=== PATIENT | female | born 1955 | race Caucasian/White ===

== ENCOUNTER 2024-12-20 14:29 | Inpatient (IN) | payer MEDICARE, BC, MEDICAID, SELFPAY ==
[2024-12-20 15:00] VITALS: BP 127/80; PULSE 102; RESP 18; TEMP 36.6; O2SAT 98
--- NOTE | 2024-12-20 15:11 | EKG_ITS ---
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
--- NOTE | 2024-12-20 15:11 | XR_ITS ---
Examination: AP lateral chest 2 views TECHNIQUE: Upright AP lateral chest 2 views Date and time: December 20, 2024 1525 hours Comparison September 18, 2023 INDICATIONS: Chest pain shortness of breath confusion today. FINDINGS: Mild prominence left ventricle Significant hyperexpansion Accentuation basilar bronchovascular markings. No pneumonia or pulmonary edema IMPRESSION: COPD Basilar bronchitis pattern
--- NOTE | 2024-12-20 15:13 | PD.EDRME ---
Rapid Medical Screening Exam RME Arrival date/time: 12/20/24 14:29 69-year-old female with a history of atrial fibrillation presents to the emergency room with a chief complaint of altered mental status. Patient is brought in by family members who were sent over by the primary care provider. I have greeted and performed a focused initial assessment of this patient. A comprehensive ED assessment and evaluation of the patient, analysis of all test results, and completion of the medical decision making process will be conducted by additional ED providers. Chief Complaint: Altered Mental Status Time Seen by Provider: 12/20/24 14:48 Vital signs: Vital Signs Temperature 97.9 F 12/20/24 15:00 Pulse Rate 102 H 12/20/24 15:00 Respiratory Rate 18 12/20/24 15:00 Blood Pressure 127/80 12/20/24 15:00 Pulse Oximetry (%) 98 12/20/24 15:00 Oxygen Delivery Method Room Air 12/20/24 15:00 Vital signs reviewed by provider: Yes
[2024-12-20 16:04] LABS: Collection Type, Urine Clean Catch
[2024-12-20 16:06] LABS: Basophils # (Auto) 0.1 Thou/mm3 (0.0-0.2); Basophils % (Auto) 1 % (0-2.5); Eosinophils # (Auto) 0.2 Thou/mm3 (0.0-0.5); Eosinophils % (Auto) 3 % (0-10); Hematocrit 33.6 % (36.0-46.0); Hemoglobin 10.9 g/dL (12.0-16.0); Immature Granulocytes Auto 0.02 Thou/mm3 (0.00-0.00); Lymphocytes # (Auto) 1.2 Thou/mm3 (1.0-4.8); Lymphocytes % (Auto) 19 % (10-50); Mean Corpuscular HGB Conc 32.4 g/dl (31.0-37.0); Mean Corpuscular Hemoglobin 30.4 pg (25.0-35.0); Mean Corpuscular Volume 94 fL (80-100); Monocytes # (Auto) 0.4 Thou/mm3 (0.0-0.8); Monocytes % (Auto) 6 % (0-12); Neutrophils # (Auto) 4.6 Thou/mm3 (1.8-7.7); Neutrophils % (Auto) 70 % (37-80); Nucleated Red Blood Cell # 0.00 Thou/mm3 (0.00-0.00); Nucleated Red Blood Cell % 0 /100 WBC (0); Platelet Count 156 Thou/mm3 (140-440); RDW Standard Deviation 44.2 fL (36.4-46.3); Red Blood Count 3.58 Miln/mm3 (4.00-5.20); White Blood Count 6.5 Thou/mm3 (3.6-11.0)
[2024-12-20 16:15] LABS: Bilirubin,Urine Negative (Negative); Blood,Urine Negative (Negative); Clarity,Urine Clear (Clear/Hazy); Color,Urine Yellow (Lt Yel-Yel); Glucose, Urine Negative (Negative); Ketones,Urine Negative (Negative); Leukocyte Esterase,Urine Negative (Negative); Nitrite,Urine Negative (Negative); PH,Urine 6.0 (5.0-7.0); Protein,Urine Trace (Neg - Trace); RBC,Urine 12 /hpf (0-3); Specific Gravity,Urine 1.029 (1.001-1.035); Squamous Epithelial Cell,Urine 3 /hpf (0-5); Urobilinogen,Urine Negative mg/dL (0.0-1.0); WBC,Urine 1 /hpf (0-5)
--- NOTE | 2024-12-20 16:31 | XR_ITS ---
Examination: CT brain head without contrast. 2-D sagittal coronal reconstructions Date and time of exam:December 20, 2024, 1752 hours INDICATIONS: Altered mental status after falling 2 days ago CTDI: vol (mGy):39.6. DLP: (mGycm):704 Technique: Multiple CT axial sections of the brain have been obtained, 5 mm slice thickness. Contrast has not been administered. 2-D sagittal, coronal reconstructions have been obtained Low dose protocols were performed. One or more of the following dose reduction techniques were used; automated exposure control, adjustment of the mA and/or KV according to patient size, use of iterative reconstruction technique. Findings: No significant ventricular enlargement. Intra-axial or extra-axial hemorrhage density is not seen. No mass effect or midline shift Basal cisterns are not remarkable. Fourth ventricle is midline. Cranial vault intact. Soft tissue right scalp swelling Impression: Negative for acute hemorrhage, mass effect or midline shift
--- NOTE | 2024-12-20 16:32 | PD.EDAMS ---
Altered Mental Status RME/HPI General Chief Complaint: Altered Mental Status Stated Complaint: CONFUSED, SENT BY DR HODGES FOR WORKUP Time Seen by Provider: 12/20/24 14:48 Arrival date/time: 12/20/24 14:29 Limitations: no limitations RME / HPI RME / HPI narrative: 12/20/24 14:29 69-year-old female with a history of atrial fibrillation presents to the emergency room with a chief complaint of altered mental status. Patient is brought in by family members who were sent over by the primary care provider. I have greeted and performed a focused initial assessment of this patient. A comprehensive ED assessment and evaluation of the patient, analysis of all test results, and completion of the medical decision making process will be conducted by additional ED providers. DR. GENTILE MAIN ED EVALUATION 69 year old female with history of dementia, COPD, requiring 4L of home oxygen, who presents to the ED for evaluation of generalized weakness, referred by her PCP Dr. Hodges. Per son, the patient?s cognitive and physical condition have progressively deteriorated over the last two months. Specifically in the last week with a significant decline in her mobility. Approximately two months ago, the patient was still able to walk with the assistance of a walker. However, she is now mostly sedentary. In the past few weeks, she has had frequent falls, including a recent ground-level fall this morning, resulting in a small laceration to the back of her head. No loss of consciousness. While in the ED, the patient complains of feeling globally weak, headache, and pain in her right upper back. Son denies any fever, chills, chest pain, shortness of breath, cough, vomiting, diarrhea, or urinary complaints. Son expressed concerns of the rapid progression of her symptoms and requesting SNF placement. Social History: 40 year smoking history and currently occasionally uses a vape. Related Data Home Medications ?Medication ?Instructions ?Recorded ?Confirmed estradiol 1 mg tablet (Estrace) 2 mg PO QDAY #0 tabs 03/05/16 01/18/21 fentanyl 100 mcg/hr transdermal 100 mcg TD 2 X WEEKLY PRN PAIN ##0 03/05/16 01/18/21 patch hydrocodone 10 mg-acetaminophen 1 tab PO TID #0 tabs 03/05/16 01/18/21 300 mg tablet metoprolol succinate 25 mg 50 mg PO BID ##0 03/05/16 01/18/21 tablet,extended release 24 hr (Toprol XL) mirtazapine 30 mg tablet (Remeron) 15 mg PO QDAY ##0 03/05/16 01/18/21 omeprazole 40 mg capsule,delayed 40 mg PO BID ##0 03/05/16 01/18/21 release albuterol sulfate 90 mcg/actuation 2 puff inhalation QID 05/27/18 01/18/21 aerosol inhaler (ProAir HFA) prochlorperazine maleate 10 mg 10 mg PO TID 05/27/18 01/18/21 tablet (Compazine) sertraline 25 mg tablet (Zoloft) 50 mg PO QDAY 05/27/18 01/18/21 fluticasone fur. 100 mcg-umeclid 1 inh inhalation QDAY 04/23/19 01/18/21 62.5 mcg-vilant 25 mcg inhalat.powder (Trelegy Ellipta) furosemide 40 mg tablet 40 mg PO QDAY 04/23/19 01/18/21 pentosan polysulfate sodium 100 mg 100 mg PO TID 04/23/19 01/18/21 capsule (Elmiron) Previous Rx's ?Medication ?Instructions ?Recorded prednisone 50 mg tablet 50 mg PO QDAY #7 tabs 09/18/23 Allergies Allergy/AdvReac Type Severity Reaction Status Date / Time amoxicillin Allergy Nausea Verified 12/20/24 14:34 sulfamethoxazole (From Allergy Nausea Verified 12/20/24 14:34 Bactrim) trimethoprim (From Bactrim) Allergy Nausea Verified 12/20/24 14:34 Review of Systems Review of Systems Systems Reviewed: All systems reviewed, normal except as documented Past Medical History Past Medical History NEUROLOGIC: Positive Cerebrovascular Accident and Meningitis CARDIAC: Positive Cardiac Disorders and Hypertension RESPIRATORY: Positive Chronic Obstructive Pulmonary Disease (COPD), Emphysema and Pneumonia GASTROINTESTINAL: Positive Gastrointestinal Disorders, Hepatitis, Hemorrhoids and Gastroesophageal Reflux Disease GENITOURINARY: Positive Genitourinary Disorders REPRODUCTIVE: Positive Previous Pregnancies MUSCULOSKELETAL: Positive Musculoskeletal Disorders, Arthritis, Osteoporosis and Fibromyalgia ENDOCRINE: Positive Endocrine Disorders HEMATOLOGIC: Positive Blood Disorders and Anemia PSYCHO/SOCIAL: Positive Depression and Anxiety OTHER HISTORY: Positive Hospitalization, Chicken Pox and Measles Family History FAMILY HISTORY: Positive Family Respiratory Disorders and Family Surgery; Negative Family Psychiatric Problems, Family Cardiac Disorders, Family Gastrointestinal Problems, Family Cancer or Family Anesthesia Reaction Surgical History SURGICAL: Positive Abdominal Surgery and Hysterectomy; Negative Cardiac Surgery or Endocrine Surgery Social History SMOKING STATUS: Former smoker SECOND HAND EXPOSURE: No ED Exam General Limitations: Present no limitations General appearance: Present alert, in no apparent distress, cachectic and other (Pleasantly demented and unable to contribute to hx ) Head Head exam: Present other (Posterior scalp contusion with small overlying abrasion, no laceration ) Eye Eye exam: Present normal appearance, PERRL and EOMI ENT ENT exam: Present normal exam, normal oropharynx and mucous membranes moist Neck Neck exam: Present normal inspection, full ROM and trachea midline Chest Chest inspection: Present normal inspection and symmetric chest wall rise Respiratory Respiratory exam: Present normal lung sounds bilaterally Cardiovascular Cardiovascular exam: Present regular rate, normal rhythm and normal heart sounds Abdominal Exam Abdominal exam: Present soft and normal bowel sounds Extremities Exam Extremities exam: Present normal inspection and full ROM Back Exam Back exam: Present normal inspection and full ROM Neurological Exam Neurological exam: Present alert, CN II-XII intact and other (Pleasantly demented ) Psychiatric Psychiatric exam: Present normal affect and normal mood Skin Skin exam: Present warm, dry, intact and normal color Course Quality Measures none Orders Category Date Time Status Consult Deputy Administrator X1 Care 12/20/24 15:14 Active EKG (ED ONLY) *Do not use* NOW Care 12/20/24 15:11 Completed PT [Referral Physical Therapy] Stat Cons 12/20/24 15:[address] head/brain wo con Stat Exams 12/20/24 16:31 Taken EKG (ED Only) Stat Exams 12/20/24 15:11 Draft XR chest 2V Stat Exams 12/20/24 15:11 Completed B-Type Natriuretic Peptide Stat Lab 12/20/24 15:52 Completed CBC Stat Lab 12/20/24 15:52 Completed Comprehensive Metabolic Panel Stat Lab 12/20/24 16:49 Completed Free T4 (Free Thyroxine) Stat Lab 12/20/24 16:49 Completed Magnesium Stat Lab 12/20/24 16:49 Completed Thyroid Stimulating Hormone Stat Lab 12/20/24 16:49 Completed Troponin I Stat Lab 12/20/24 16:49 Completed Urinalysis Stat Lab 12/20/24 15:49 Completed Sodium Chloride 0.9% 1000 ml [Ns] 1,000 ml Med 12/20/24 17:49 Active IV 999 mls/hr Vital Signs Vital signs: Vital Signs Temperature 97.9 F 12/20/24 15:00 Pulse Rate 102 H 12/20/24 15:00 Respiratory Rate 18 12/20/24 15:00 Blood Pressure 127/80 12/20/24 15:00 Pulse Oximetry (%) 98 12/20/24 15:00 Oxygen Delivery Method Room Air 12/20/24 15:00 Pulse ox is 98% on room air which is adequate. Altered Mental Status MDM Narrative MDM Narrative:: Skye Garcia am scribing for and in the presence of Dr. Gentile. Patient data External records reviewed:: [facility] previous records (I reviewed ED visit on 09/18/2023 ) Clinical information provided by:: patient and family (Son provides majority of history ) Social determinants that could affect healthcare access:: none Patient has the following chronic illnesses:: Dementia, COPD, requiring 4L of home oxygen How is presenting disease/condition affected by chronic disease/condition?: exacerbated by Evaluation data The following diagnostics were reviewed and interpreted by me:: lab results, radiology exam(s) and EKG tracing(s) (15:16 PM. NSR, 77, LAD, no ectopy, Q-wave in lead V1 and V2 as well as lead III and aVF, no STEMI. ) Lab and/or radiology exams considered but not ordered:: None Interpretation Summary: Ordering Physician: Sharan Carter Date of Service: 12/20/24 Procedure(s): XR chest 2V Accession Number(s): [id number] cc: Sharan Carter; Goran Robison MD~ Examination: AP lateral chest 2 views TECHNIQUE: Upright AP lateral chest 2 views Date and time: December 20, 2024 1525 hours Comparison September 18, 2023 INDICATIONS: Chest pain shortness of breath confusion today. FINDINGS: Mild prominence left ventricle Significant hyperexpansion Accentuation basilar bronchovascular markings. No pneumonia or pulmonary edema IMPRESSION: COPD Basilar bronchitis pattern Dictated By: Goran Robison MD Signed By: <Electronically signed by Goran Robison MD in OV> 12/20/24 1543 Medications / Prescriptions Medications or Prescriptions considered but not ordered:: None Medication administrations:: Medication Administration History Sodium Chloride (Ns) 1,000 mls @ 999 mls/hr IV .Q1H1M ONE Stop: 12/20/24 18:49 See above Consultations Consultation(s) initiated? (list below): No Diagnosis Most likely diagnosis given after review of the tests above:: Generalized weakness Dehydration Adult failure to thrive Admission Indicated Admission indicated?: indicated Admission Request Was there a request for admission?: Yes Admission Attestation Admission request attestation: Discussed case with [] from Hospitalist service regarding admission. Discussed patients ED course, exam findings, labs, and radiology results. The Hospitalist [agrees,declines] to accept the patient for admission. Disposition Plan Disposition Plan: Admit Discharge Plan Plan Patient Disposition: Admit Acute Care w/in Hospital Prescriptions/Referrals Prescriptions/Med Rec: No Action fentanyl 100 mCg/PATCH patch 72 hour 100 mcg TD 2 X WEEKLY PRN (Reason: PAIN) Qty: 0 estradiol [Estrace] 1 MG tablet 2 mg PO QDAY Qty: 0 metoprolol succinate [Toprol XL] 25 MG tablet extended release 24 hr 50 mg PO BID Qty: 0 hydrocodone-acetaminophen 10-300 mg Tablet 1 tab PO TID Qty: 0 omeprazole 40 MG capsule,delayed release(DR/EC) 40 mg PO BID Qty: 0 mirtazapine [Remeron] 30 mg Tablet 15 mg PO QDAY Qty: 0 prochlorperazine maleate [Compazine] 10 mg Tablet 10 mg PO TID albuterol sulfate [ProAir HFA] 90 mcg/actuation Hfa Aerosol Inhaler 2 puff INHALATION QID sertraline [Zoloft] 25 mg Tablet 50 mg PO QDAY furosemide 40 mg Tablet 40 mg PO QDAY Elmiron 100 mg Capsule 100 mg PO TID Trelegy Ellipta 100-62.5-25 mcg Blister With Device 1 inh INHALATION QDAY prednisone 50 mg tablet 50 mg PO QDAY Qty: 7 0RF Referrals: Shahram Hodges MD [Primary Care Provider] - In 1 week Problem List Clinical Impression: Generalized weakness, Dehydration, Adult failure to thrive Patient/Caregiver Discharge Instructions Print Language: Yi Stand Alone Forms: Elizabeth Award Info., Patient Portal Info Letter
[2024-12-20 16:46] LABS: B-Type Natriuretic Peptide 107 pg/mL (0-100)
--- NOTE | 2024-12-20 16:50 | PC.CC ---
Per request of PA, ASW spoke with family regarding SNF placement, as the pt and family want SNF for the pt. ASW informed ER provider that pt will need a PT eval and PT is present with pt now. ASW or SS will f/u with SNF referral upon results from PT.
--- NOTE | 2024-12-20 17:00 | PC.PT ---
PT eval completed.
[2024-12-20 17:26] LABS: Alanine Aminotransferase 7 U/L (10-49); Albumin, Serum 4.1 gm/dL (3.4-4.8); Albumin/Globulin Ratio 1.4 (1.2-2.2); Alkaline Phosphatase 152 U/L (46-116); Anion Gap 10 (7-16); Aspartate Amino Transferase 25 U/L (0-34); BUN/Creatinine Ratio 33 Ratio (12-20); Bilirubin,Total 0.2 mg/dL (0.3-1.2); Blood Urea Nitrogen 26 mg/dL (9-23); Calcium 9.0 mg/dL (8.3-10.6); Calcium (Corrected) 9.0 mg/dL (8.5-10.1); Carbon Dioxide 31.7 mMol/L (20.0-31.0); Chloride 101 mMol/L (98-107); Creatinine (Component) 0.8 mg/dL (0.6-1.3); Globulin 2.9 gm/dL (2.3-3.5); Glucose 90 mg/dL (74-106); Magnesium 1.7 mg/dL (1.6-2.6); Osmolality,Calculated 289 (275-295); Potassium 3.9 mMol/L (3.4-5.1); Sodium 143 mMol/L (136-145); Total Protein 7.0 gm/dL (5.7-8.2); Troponin I < 0.020 ng/mL (0.0-0.045); eGFR > 60 See Note
[2024-12-20 18:20] LABS: Free T4 (Free Thyroxine) 0.80 ng/dL (0.89-1.76); Thyroid Stimulating Hormone 2.19 uIU/mL (0.55-4.78)
--- NOTE | 2024-12-20 19:14 | ESHP_ITS ---
Documentation for date of: 12/20/24 HPI History of Present Illness History of present illness: HPI is limited as this patient is a poor historian Faina is a 69 y/o female with PMHx COPD (On 4-5 L oxygen at home), anorexia, ? Urinary incontinence, failure to thrive, and recurrent falls who comes to [facility] on 12/20/2024 and was brought in by her son and daughter in law for evaluation of worsening fatigue. Pt's family reports that pt has been on hospice for the past two years and needed to get reevaluated by her PCP to continue with hospice. They say she is on hospice for long standing COPD in which she uses Oxygen 4-5 L. They say she has been worsening with her ADLs for the past several months and endorse significant weak loss in the interim. They say she gets very anxious and has a number of medicines for her anxiety and chronic pain. Pt does have recurrent falls at home as well and had a couple falls prior to admission. Has never seen a lung doctor, unsure who her tool coordinator is at this time. She currently lives at home with her son and daughter in law. ED Course: Pt arrived to the ED with a temperature of 98.0 F, HR of 102, RR 18, and a blood pressure of 127/80, saturating 98% on Room air. Pt was worked up and was found to have a Hgb of 10.9, WBC 6.5, Potassium 3.9, Na 143, Cr 0.8, Mg 1.7, T4 0.8, TSH 2.19. EKG showed normal rate and sinus rhythm, qtc 390. CXR shows bibasilar bronchitis. Head CT was done and showed no hemorrhage, mass effect or midline shift. Medicine was consulted and pt was admitted to the floors. PMHx: As above Surgeries: Surgical hx is unknown at this time Meds: Estradiol, Xanax (Scheduled 1 mg BID), Ativan (0.5 mg q8h PRN), Liquid Morphine 30 mg q12h PRN, Elmiron (100 mg qday), gabapentin 200 mg qday, Seroquel 100 mg BID, Metorpolol XL 50 mg qday Allergies: Amoxicillin, Bactrim Family Hx: Limited Family hx at this time Social Hx:Has smoked for over 30 years, uses 4-5 L of oxygen at baseline, has been on hospice for about ~ 2 years, has had multiple ground level falls recently, wheelchair bound for the past couple months. Born in [place], has lived in [place] and [place] in the past. Unsure if pt has worked in the past. Review of Systems Review of Systems Narrative Review of Systems: ROS is limited at this time as pt is poor historian at this time Exam Vital Signs Temp Pulse Resp BP Pulse Ox O2 Del Method 97.9 F 102 H 18 127/80 98 Room Air 12/20/24 15:00 12/20/24 15:00 12/20/24 15:00 12/20/24 15:00 12/20/24 15:00 12/20/24 15:00 Narrative Exam General: AAOx1, wheel chair bound, uses oxygen, frail, little musculature, weak HEENT: Dry mucous membranes, conjunctiva clear, EOMI, PERRLA, poor dentition, prominent clavicles bilat, some dried scabs present throughout her head Cardiovascular: S1, S2, radial pulses +2 bilat, RRR Pulmonary: Slight wheezing, on 4L NC GI: No tenderness to light or deep palpitation, no guarding, rigidity, rebound tenderness or distension Extremities: No presence of trace or pitting edema in lower extremities bilaterally, dorsalis pedis pulses +1 bilaterally Neuro: AAOx1, Limited neuro exam Psych: Anxious, slightly cooperative Results: Labs 12/21/24 05:28 12/21/24 05:28 Labs: Short CBC 12/20/24 Range/Units 15:52 WBC 6.5 (3.6-11.0) Thou/mm3 Hgb 10.9 L (12.0-16.0) g/dL Hct 33.6 L (36.0-46.0) % Plt Count 156 (140-440) Thou/mm3 BMP 12/20/24 16:49 Sodium 143 Potassium 3.9 Chloride 101 Carbon Dioxide 31.7 H BUN 26 H Creatinine 0.8 Glucose 90 Calcium 9.0 Cardiac Enzymes 12/20/24 Range/Units 16:49 Troponin I < 0.020 (0.0-0.045) ng/mL Liver Function 12/20/24 Range/Units 16:49 Total Bilirubin 0.2 L (0.3-1.2) mg/dL AST 25 (0-34) U/L ALT 7 L (10-49) U/L Alkaline Phosphatase 152 H (46-116) U/L Albumin 4.1 (3.4-4.8) gm/dL Urine 12/20/24 Range/Units 15:49 Urine Color Yellow (Lt Yel-Yel) Urine Clarity Clear (Clear/Hazy) Urine pH 6.0 (5.0-7.0) Ur Specific [place] 1.029 (1.001-1.035) Urine Protein Trace (Neg - Trace) Urine Glucose (UA) Negative (Negative) Quality Measures Quality Measures none Advance care planning discussed with:: patient and child Medications Home Medications and Allergies Home Medications ?Medication ?Instructions ?Recorded ?Confirmed ?Type estradiol 1 mg tablet (Estrace) 2 mg PO QDAY #0 tabs 1 12/20/24 History fentanyl 100 mcg/hr transdermal 100 mcg TD 2 X WEEKLY PRN PAIN ##0 03/05/16 12/20/24 History patch metoprolol succinate 25 mg 50 mg PO BID ##0 03/05/16 0 12/20/24 History tablet,extended release 24 hr (Toprol XL) omeprazole 40 mg capsule,delayed 40 mg PO BID ##0 /0 09/1512/20/24 History release albuterol sulfate 90 mcg/actuation 2 puff inhalation Q ID 05/27/18 12/20/24 History aerosol inhaler (ProAir HFA) prochlorperazine maleate 10 mg 10 mg PO TID 05/27/18 0 12/20/24 History tablet (Compazine) sertraline 25 mg tablet (Zoloft) 50 mg PO QDAY 8 12/20/24 History fluticasone fur. 100 mcg-umeclid 1 inh inhalation QDAY 04/23/19 12/20/24 History 62.5 mcg-vilant 25 mcg inhalat.powder (Trelegy Ellipta) furosemide 40 mg tablet 40 mg PO QDAY 04/23/1912/20 History pentosan polysulfate sodium 100 mg 100 mg PO TID 04/2312/20/24 History capsule (Elmiron) alprazolam 1 mg tablet 1 mg PO BID anxiety 12/20/24 12/20/24 History gabapentin 100 mg capsule 100 mg PO QDAY 12/20/2412/01 History lorazepam 0.5 mg tablet 0.5 mg PO Q8H PRN anxiety an d 12/20/24 12/20/24 History agitation morphine 30 mg tablet,extended 30 mg PO Q12H 12/20/24 12/20/24 History release quetiapine 50 mg tablet 50 mg PO BID 12/20/24 History Allergies Allergy/AdvReac Type Severity Reaction Status Date / Time amoxicillin Allergy Nausea Verified 12/20/24 14:34 sulfamethoxazole (From Allergy Nausea Verified 12/20/24 14:34 Bactrim) trimethoprim (From Bactrim) Allergy Nausea Verified 12/20/24 14:34 Visit Medications Acetaminophen (Acetaminophen 325 Mg Tablet) 650 mg PO Q6H PRN PRN Reason: Fever >100 or pain 1-3 Stop: 01/19/25 18:59 Hydrocodone Bitart/Acetaminophen (Hydrocodone/Apap 5/325 Tablet) 1 tab PO Q4HR PRN PRN Reason: PAIN SCALE 4-6 (Moderate Stop: 12/25/24 18:59 Alprazolam (Alprazolam 0.25 Mg Tablet) 1 mg PO BID [facility] Stop: 12/25/24 19:09 Estradiol (Estradiol 1 Mg Tablet) 2 mg PO QDAY [facility] Stop: 01/20/25 08:59 Gabapentin (Gabapentin 100 Mg Capsule) 200 mg PO QDAY [facility] Stop: 01/20/25 08:59 Levalbuterol HCl (Levalbuterol Rt 0.63 Mg/3 Ml Nebu) 0.63 mg INH Q6HRRT PRN PRN Reason: wheezing or SOB Stop: 01/19/25 18:59 Lorazepam (Lorazepam 0.5 Mg Tablet) 0.5 mg PO Q8H PRN PRN Reason: anxiety Stop: 12/25/24 19:04 Morphine Sulfate (Morphine Sulf Liqd 10 Mg/5 Ml Udc) 10 mg PO Q4HR PRN PRN Reason: breakthrough pain Stop: 12/25/24 19:04 Non-Formulary Medication (Elmiron) 100 mg PO QDAY [facility] Stop: 01/20/25 08:59 Pantoprazole Sodium (Pantoprazole Inj 40 Mg Vial) 40 mg IVP QDAY [facility] Stop: 01/20/25 08:59 Discontinued Medications Sodium Chloride (Ns) 1,000 mls @ 999 mls/hr IV .Q1H1M ONE Stop: 12/20/24 18:49 Assessment & Plan Plan Assessment Faina is a 69 y/o female with PMHx COPD (On 4-5 L oxygen at home), anorexia, ? Urinary incontinence, failure to thrive, and recurrent falls who is admitted current for recurrent falls, generalized weakness and failure to thrive. #Generalized Weakness #Recurrent Falls #Failure to thrive #Polypharmacy #Chronic Pain Pt has been on hospice for about two years, is taking an impressive amount of narcotics, analgesics and anxiolytics Pt will need reevaluation for hospice evaluation Pt was on hospice for worsening COPD Will hold on resuming all home pain medicine regimen at this time due to concern for polypharmacy Head CT negative Plan: - RD consult - PT consult - Nurse swallow screen - Orthostatic Vitals - Multimodal pain management including Liquid morphine, Gabapentin, [place] and Tylenol - Cardiac Stratification #Hx of COPD #Chronic Smoker GOLD Stage: E Uses 4-5 L at baseline Uses Nebulizer VESTA sparingly Barley uses Advair at home Plan: - Xoponex Breathing Tx Q6HRRT - Maintain Oxygen saturations 88-92% - Consider Pulmonology consult - Nicotine Patch - Avoid BB for concern for bronchospasm #Chronic A-fib [id number] HAS-BLED: 2 Rate: Controlled Rhythm: Appears to be regular at the time AC: None upon med d/c Last Echo in 2018 shows EF 60% Unsure if it is paroxysmal, however EKG in 2018 shows Afib with RVR Pt is currently sinus Unsure why patient is on BB with COPD and Afib If she does not have HFrEF, pt would benefit more with Cardizem for rate and rhythm control and have reduced risk for bronchospasm Plan: - Telemetry - Holding BB - Mag >2; K+>4 - Consider Cardio consult #Chronic Normocytic anemia DDx: GI Bleed, Cancer, chronic anemia, medication induced NSAID use: Unsure Blood thinner use: None MCV ~90s, Hgb 10.9 Plan: ? Trend CBC ? Iron studies panel ? Peripheral blood smear ? Transfusion protocol hemoglobin below 7 ? Reticulocyte Count ? Protonix 40 mg daily #Hx of Anxiety Takes Seroquel, xanax and ativan as needed Concern for Polypharmacy Plan: - Resumed home seroquel 100 mg BID - Resumed home Xanax 1 mg BID - Resumed home Ativan 0.5 mg q8h PRN #Low T4 #Hx of L thyroid nodule s/p L thyroid lobectomy Unsure if patient takes thyroid medicine TSH wnl (2.19) Plan: - Will consider starting thyroid medicine, but will hold upon med rec #? Chronic Bedsore Unable to examine at this time Reported by family Plan: - Wound care as needed - Referral to wound care #Health Maintenance Disposition: Med/Tele DVT prophylaxis: Lovenox GI prophylaxis: Protonix Diet: Pending Swallow Eval CODE STATUS: DNR Patient seen and care discussed with my attending physician, Dr. Augie Garcia, PGY-2 Attending Provider Attestation/Addendum I attest that I was physically present for the evaluation, physical examination, lab and imaging review of the patient with the residents. I discussed the case with the residents and agree with the findings and plans of care as documented above. After examination of the patient and review of the clinical data I feel that this patient needs admission to the hospital for further treatment/evaluation. Patient is a 69 years old female with past medical history of COPD on 4 to 5 L home oxygen, urinary incontinence, failure to thrive, A-fib, recurrent falls who presented to the ED with worsening fatigue and recurrent falls. Patient is also on hospice care with extensive pain/anxiety medication. She has been having decreased appetite, losing weight and also has a bedsore. In the ED, vitals were stable except for mild heart rate elevation, saturating well on nasal cannula. She has a hemoglobin of 10.9, magnesium 1.7. Chest x-ray shows bibasilar bronchitis. Head CT was done, which was negative for acute finding. At bedside, patient is only oriented to herself, appears frail and anxious. Has dry mucous membrane, also has a small wound on her occipital region. Noted to have multiple small bruising around multiple places of body. We will admit the patient for management of recurrent falls, failure to thrive and generalized weakness. We will obtain orthostatic vitals, physical therapy evaluation, registered dietitian evaluation. We will continue with supplemental oxygen, and continue with multimodal pain management. We will also obtain wound care referral for bedsore. Rosanna Ghosh MD
[2024-12-20 19:20] VITALS: BP 136/80; PULSE 72; RESP 16; TEMP 36.4; O2SAT 100
[2024-12-20 19:45] VITALS: PULSE 67; RESP 18; O2SAT 98
[2024-12-20] MEDS: SODIUM CHLORIDE 0.9% 1000 ML 1,000 ML 999 ML IV (19:46)
[2024-12-20 20:12] VITALS: PULSE 69; RESP 18; O2SAT 97
[2024-12-20 21:30] VITALS: BP 154/55; PULSE 68; RESP 15; TEMP 36.1; O2SAT 99
[2024-12-20] MEDS: Magnesium Sulfate 2 GM Ivpb 2 GM/50 ML BAG IV (22:16)
[2024-12-21] VITALS (13 sets, daily range): BP systolic 137–165; BP diastolic 73–102; PULSE 57–106; RESP 10–17; TEMP 36.1–37.2; O2SAT 92–100; BMI 11.2; BMI 13.0
[2024-12-21 06:11] LABS: Basophils # (Auto) 0.0 Thou/mm3 (0.0-0.2); Basophils % (Auto) 1 % (0-2.5); Eosinophils # (Auto) 0.2 Thou/mm3 (0.0-0.5); Eosinophils % (Auto) 5 % (0-10); Hematocrit 31.5 % (36.0-46.0); Hemoglobin 10.0 g/dL (12.0-16.0); Immature Granulocytes Auto 0.00 Thou/mm3 (0.00-0.00); Immature Reticulocyte Fraction 12.6 % (3.0-15.9); Lymphocytes # (Auto) 1.8 Thou/mm3 (1.0-4.8); Lymphocytes % (Auto) 35 % (10-50); Mean Corpuscular HGB Conc 31.7 g/dl (31.0-37.0); Mean Corpuscular Hemoglobin 30.6 pg (25.0-35.0); Mean Corpuscular Volume 96 fL (80-100); Monocytes # (Auto) 0.4 Thou/mm3 (0.0-0.8); Monocytes % (Auto) 8 % (0-12); Neutrophils # (Auto) 2.7 Thou/mm3 (1.8-7.7); Neutrophils % (Auto) 51 % (37-80); Nucleated Red Blood Cell # 0.00 Thou/mm3 (0.00-0.00); Nucleated Red Blood Cell % 0 /100 WBC (0); Platelet Count 142 Thou/mm3 (140-440); RDW Standard Deviation 45.8 fL (36.4-46.3); Red Blood Count 3.27 Miln/mm3 (4.00-5.20); Reticulocyte % (Auto) 1.1 % (0.5-1.5); Reticulocyte Absolute Auto 35.0 Biln/L (25.0-75.0); Reticulocyte Hgb Content 34.0 pg (28.0-35.0); White Blood Count 5.2 Thou/mm3 (3.6-11.0)
[2024-12-21 06:21] LABS: INR 1.1 (0.9-1.3); Partial Thromboplastin Time 36.6 Seconds (22.0-36.0); Prothrombin Time 11.5 Seconds (9.0-12.2)
[2024-12-21 06:37] LABS: Ferritin 62 ng/mL (7.3-270.7); Iron 44 mcg/dL (50-170); Percent Iron Saturation 19 % (20-55); Total Iron Binding Capacity 230 mcg/dL (250-425); Unsaturated Iron Binding 186 (225-295)
[2024-12-21] MEDS: LEVALBUTEROL RT 0.63 MG/3 ML NEBU INH ×2 (06:46→12:38)
[2024-12-21 06:48] LABS: Glucose Estimated Average 120 mg/dL (80-131); Hemoglobin A1C 5.8 % Hgb (4.8-6.0)
[2024-12-21 06:58] LABS: Alanine Aminotransferase < 7 U/L (10-49); Albumin, Serum 3.7 gm/dL (3.4-4.8); Albumin/Globulin Ratio 1.4 (1.2-2.2); Alkaline Phosphatase 136 U/L (46-116); Anion Gap 10 (7-16); Aspartate Amino Transferase 17 U/L (0-34); BUN/Creatinine Ratio 27 Ratio (12-20); Bilirubin,Total 0.2 mg/dL (0.3-1.2); Blood Urea Nitrogen 19 mg/dL (9-23); Calcium 8.4 mg/dL (8.3-10.6); Calcium (Corrected) 8.6 mg/dL (8.5-10.1); Carbon Dioxide 31.6 mMol/L (20.0-31.0); Cardiac Risk Estimate 2.9 RATIO (3.7-5.6); Chloride 102 mMol/L (98-107); Cholesterol 179 mg/dL (132-200); Creatinine (Component) 0.7 mg/dL (0.6-1.3); Estimated Creatinine Clearance 31.0 mL/min (>60); Globulin 2.7 gm/dL (2.3-3.5); Glucose 78 mg/dL (74-106); HDL Cholesterol 61 mg/dL (40-60); LDL Cholesterol,Calculated 96 mg/dL (0-130); Magnesium 2.4 mg/dL (1.6-2.6); Osmolality,Calculated 288 (275-295); Phosphorous 2.7 mg/dL (2.4-5.1); Potassium 3.6 mMol/L (3.4-5.1); Sodium 144 mMol/L (136-145); Thyroid Stimulating Hormone 3.47 uIU/mL (0.55-4.78); Total Protein 6.4 gm/dL (5.7-8.2); Triglycerides 112 mg/dL (30-150); eGFR > 60 See Note
[2024-12-21] MEDS: NICOTINE PATCH 14 MG/24 HR PATCH.TD24 TOP (08:13)
[2024-12-21] MEDS: GABAPENTIN 100 MG CAPSULE 200 MG PO (08:14)
[2024-12-21] MEDS: ENOXAPARIN SOD INJ 40 MG/0.4 ML SYRINGE SC (08:14)
--- NOTE | 2024-12-21 08:30 | PCS.ST ---
Swallow Evaluation completed. See report for details. No s/s of aspiration. Functional swallow.
[2024-12-21 09:14] LABS: Path Review Blood Smear Sent to Pathologist
--- NOTE | 2024-12-21 10:34 | PC.DIETICIAN ---
Nutrition recommendations: 1. Regular diet (chopped meats). 2. Ensure Plus 240ml BID with breakfast and lunch. 3. Thiamine 100mg/day for 10 days. 4. Multivitamins/Minerals. Patient meets ASPEN criteria for Severe chronic disease or condition related malnutrition due to: 1. Severe muscle wasting. 2. Severe subcutaneous fat loss. 3. Significant unintentional weight loss. 4. Suspected inadequate energy intake.
[2024-12-21 11:00] LABS: Free T4 (Free Thyroxine) 0.74 ng/dL (0.89-1.76)
--- NOTE | 2024-12-21 12:20 | PC.SS ---
Follow up note: SS spoke to patient's son, Nitish @ [phone]. Nitish confirmed he is the alt medical decision maker. He states patient resides at home with him. She is total care. Patient was previously open to [facility]. Son wants patient to d/c to SNF short term. They are willing to stop hospice services temporarily while at SNF. SS will refer financial counselor to speak with family about [employer]. Son requesting a follow up with counselor about [facility] process. Son states they have all DmE at home provided by [facility]. DME: BSC, hospital bed, concentrator, 02, cane. Family preference is [facility]. Eventually, patient's son would prefer intermediate manager placement. Patient is currently altered. Patient will need gurney transport. d/c plan: SNF short term transport: [facility] aly medical decision maker: Son, Nitish,
--- NOTE | 2024-12-21 14:33 | ESPR_ITS ---
<Statement entered by Alex Ryan MD - 12/21/24 18:43> 69-year-old female with advanced COPD (GOLD Stage E) on home oxygen, anorexia, chronic pain, and a history of failure to thrive and recurrent falls, currently admitted for worsening generalized weakness and falls. She has a history of prolonged hospice enrollment for COPD and is on multiple sedating medications, raising concerns for polypharmacy contributing to her current condition. Her chronic pain regimen includes high-dose opioids and anxiolytics. Given her frailty and current weakness, home pain medications are temporarily held, and a multimodal approach with lower-dose morphine, gabapentin, and Tylenol is being used. Her presentation is highly concerning for malnutrition with a BMI of 11 with registered dietitian on board. She has chronic atrial fibrillation, currently in sinus rhythm, with prior echocardiogram showing preserved EF. Beta-blockers are held due to concerns over bronchospasm in COPD. She is not anticoagulated, and family in agreement against anticoagulation. She also has chronic normocytic anemia, likely multifactorial, with mild iron deficiency and no current anticoagulation or overt GI bleeding. A workup including blood smear and reticulocyte count is underway. Additional concerns include anxiety managed with multiple sedatives, wound care evaluation for bedsore, and a history of thyroid nodule post-lobectomy with currently low T4 but normal TSH. Documentation for date of: 12/21/24 Subjective Subjective Interval history: Patient seen at bedside. No acute overnight events. Patient is on 2 L of oxygen now, baseline is 4 to 5 L at home. Patient ate meals today. No chest pain, no shortness of breath, no abdominal pain, no nausea, and no vomiting. Exam Vital Signs Temp Pulse Resp BP Pulse Ox O2 Del Method O2 Flow Rate 97.0 F 57 L 16 143/73 H 100 Nasal Cannula 2 12/21/24 11:32 12/21/24 12:39 12/21/24 12:39 12/21/24 11:46 12/21/24 12:39 12/21/24 11:32 12/21/24 12:39 Narrative Exam General: AAOx1, wheel chair bound, uses oxygen, frail, little musculature, weak HEENT: Dry mucous membranes, conjunctiva clear, EOMI, PERRLA, poor dentition, prominent clavicles bilat, some dried scabs present throughout her head Cardiovascular: S1, S2, radial pulses +2 bilat, RRR Pulmonary: Slight wheezing, on 2L NC GI: No tenderness to light or deep palpitation, no guarding, rigidity, rebound tenderness or distension Extremities: No presence of trace or pitting edema in lower extremities bilaterally, dorsalis pedis pulses +1 bilaterally Neuro: AAOx1, Limited neuro exam Psych: Anxious, slightly cooperative Objective Labs 12/21/24 05:28 12/21/24 05:28 Labs: Laboratory Results - last 24 hr 12/20/24 12/20/24 12/20/24 15:49 15:52 16:49 WBC 6.5 RBC 3.58 L Hgb 10.9 L Hct 33.6 L MCV 94 MCH 30.4 MCHC 32.4 RDW Std Deviation 44.2 Plt Count 156 Neut % (Auto) 70 Lymph % (Auto) 19 [place] % (Auto) 6 Eos % (Auto) 3 Baso % (Auto) 1 Neut # (Auto) 4.6 Lymph # (Auto) 1.2 [place] # (Auto) 0.4 Eos # (Auto) 0.2 Baso # (Auto) 0.1 Immature Gran # (Auto) 0.02 H Absolute Nucleated RBC 0.00 Immature Gran % 0 Nucleated RBC % 0 Smear Path Review Retic Count (auto) Absolute Retic Immature Retic Fraction Retic Hgb Content CHr PT INR APTT Sodium 143 Potassium 3.9 Chloride 101 Carbon Dioxide 31.7 H Anion Gap 10 BUN 26 H Creatinine 0.8 Estim Creat Clear Calc Not Performed. eGFR > 60 BUN/Creatinine Ratio [address] Glucose [address] Glu mg/dL Hemoglobin A1c Calculated Osmolality 289 Calcium 9.0 Corrected Calcium 9.0 Phosphorus Magnesium 1.7 Iron TIBC Iron Saturation Unsat Iron Binding Ferritin Total Bilirubin 0.2 L AST 25 ALT 7 L Alkaline Phosphatase 152 H Troponin I < 0.020 B-Natriuretic Peptide 107 H Total Protein 7.0 Albumin 4.1 Globulin 2.9 Albumin/Globulin Ratio 1.4 Triglycerides Cholesterol LDL Cholesterol, Calc HDL Cholesterol Cholesterol/HDL Ratio TSH 2.19 Free T4 0.80 L Ur Collection Type Clean Catch Urine Color Yellow Urine Clarity Clear Urine pH 6.0 Ur Specific [place] 1.029 Urine Protein Trace Urine Glucose (UA) Negative Urine Ketones Negative Urine Blood Negative Urine Nitrite Negative Urine Bilirubin Negative Urine Urobilinogen (Auto) Negative Ur Leukocyte Esterase Negative Urine RBC 12 H Urine WBC 1 Ur Squamous Epith Cells 3 Urine Bacteria None 12/21/24 12/21/24 12/21/24 04:30 05:28 05:28 WBC 5.2 RBC 3.27 L Hgb 10.0 L Hct 31.5 L MCV 96 MCH 30.6 MCHC 31.7 RDW Std Deviation 45.8 Plt Count 142 Neut % (Auto) 51 Lymph % (Auto) 35 [place] % (Auto) 8 Eos % (Auto) 5 Baso % (Auto) 1 Neut # (Auto) 2.7 Lymph # (Auto) 1.8 [place] # (Auto) 0.4 Eos # (Auto) 0.2 Baso # (Auto) 0.0 Immature Gran # (Auto) 0.00 Absolute Nucleated RBC 0.00 Immature Gran % 0 Nucleated RBC % 0 Smear Path Review Sent to Pathologist Cancelled Retic Count (auto) 1.1 Absolute Retic 35.0 Immature Retic Fraction 12.6 Retic Hgb Content CHr 34.0 PT 11.5 INR 1.1 APTT 36.6 H Sodium 144 Potassium 3.6 Chloride 102 Carbon Dioxide 31.6 H Anion Gap 10 BUN 19 Creatinine 0.7 Estim Creat Clear Calc 31.0 L eGFR > 60 BUN/Creatinine Ratio 27 H Glucose [address] Glu mg/dL 120 Hemoglobin A1c 5.8 Calculated Osmolality 288 Calcium 8.4 Corrected Calcium 8.6 Phosphorus 2.7 Magnesium 2.4 Iron 44 L TIBC 230 L Iron Saturation 19 L Unsat Iron Binding 186 L Ferritin 62 Total Bilirubin 0.2 L AST 17 ALT < 7 L Alkaline Phosphatase 136 H Troponin I B-Natriuretic Peptide Total Protein 6.4 Albumin 3.7 Globulin 2.7 Albumin/Globulin Ratio 1.4 Triglycerides 112 Cholesterol 179 LDL Cholesterol, Calc 96 HDL Cholesterol 61 H Cholesterol/HDL Ratio 2.9 L TSH 3.47 Free T4 Cancelled 0.74 L Ur Collection Type Urine Color Urine Clarity Urine pH Ur Specific [place] Urine Protein Urine Glucose (UA) Urine Ketones Urine Blood Urine Nitrite Urine Bilirubin Urine Urobilinogen (Auto) Ur Leukocyte Esterase Urine RBC Urine WBC Ur Squamous Epith Cells Urine Bacteria Quality Measures Quality Measures none Advance care planning discussed with:: patient Assessment & Plan Assessment Current Active Medications: Generic Name Dose Route Start Last Admin Trade Name Freq PRN Reason Stop Dose Admin Acetaminophen 650 mg 12/20/24 19:00 Acetaminophen 325 Mg Tablet PO 01/19/25 18:59 Q6H PRN Fever >100 or pain 1-3 Hydrocodone Bitart/Acetaminophen 1 tab 12/20/24 19:00 Hydrocodone/Apap 5/325 Tablet PO 12/25/24 18:59 Q4HR PRN PAIN SCALE 4-6 (Moderate Alprazolam 1 mg 12/20/24 19:10 12/21/24 08:14 Alprazolam 0.25 Mg Tablet PO 12/25/24 19:09 1 mg BID TAISHA Administration Elmiron Cap 100 Mg 0 ea 12/21/24 09:00 PO 01/20/25 08:59 QDAY TAISHA Enoxaparin Sodium 40 mg 12/21/24 09:00 12/21/24 08:14 Enoxaparin Sod Inj 40 Mg/0.4 Ml Syringe SC 01/04/25 08:59 40 mg QDAY TAISHA Administration Estradiol 2 mg 12/21/24 09:00 12/21/24 14:16 Estradiol 1 Mg Tablet PO 01/20/25 08:59 Not Given QDAY TAISHA Gabapentin 200 mg 12/21/24 09:00 12/21/24 08:14 Gabapentin 100 Mg Capsule PO 01/20/25 08:59 200 mg QDAY TAISHA Administration Levalbuterol HCl 0.63 mg 12/21/24 07:00 12/21/24 12:38 Levalbuterol Rt 0.63 Mg/3 Ml Nebu INH 01/20/25 06:59 0.63 mg Q6HRRT TAISHA Administration Lorazepam 0.5 mg 12/20/24 19:05 Lorazepam 0.5 Mg Tablet PO 12/25/24 19:04 Q8H PRN anxiety Morphine Sulfate 10 mg 12/20/24 19:05 Morphine Sulf Liqd 10 Mg/5 Ml Udc PO 12/25/24 19:04 Q4HR PRN breakthrough pain Nicotine 14 mg 12/20/24 19:45 12/21/24 08:13 Nicotine Patch 14 Mg/24 Hr Patch.Td24 TOP 01/19/25 19:44 14 mg QDAY TAISHA Administration Ondansetron HCl 4 mg 12/20/24 19:52 Ondansetron Inj 2 Mg/Ml Inj 2 Ml IV 01/19/25 19:51 Q6H PRN NAUSEA OR VOMITING Protocol Pantoprazole Sodium 40 mg 12/21/24 09:00 12/21/24 08:14 Pantoprazole Inj 40 Mg Vial IVP 01/20/25 08:59 40 mg QDAY TAISHA Administration Quetiapine Fumarate 100 mg 12/20/24 21:00 12/21/24 08:15 Quetiapine Fumarate 100 Mg Tablet PO 01/19/25 20:59 100 mg BID TAISHA Administration Plan Assessment Faina is a 69 y/o female with PMHx COPD (On 4-5 L oxygen at home), anorexia, ? Urinary incontinence, failure to thrive, and recurrent falls who is admitted current for recurrent falls, generalized weakness and failure to thrive. #Generalized Weakness #Recurrent Falls #Failure to thrive #Polypharmacy #Chronic Pain Pt has been on hospice for about two years, is taking an impressive amount of narcotics, analgesics and anxiolytics Pt will need reevaluation for hospice evaluation Pt was on hospice for worsening COPD Will hold on resuming all home pain medicine regimen at this time due to concern for polypharmacy Head CT negative Plan: - RD consult - PT consult - Orthostatic Vitals - Multimodal pain management including Liquid morphine, Gabapentin, [place] and Tylenol - Cardiac Stratification #Hx of COPD #Chronic Smoker GOLD Stage: E Uses 4-5 L at baseline Uses Nebulizer VESTA sparingly Barley uses Advair at home Plan: - Xoponex Breathing Tx Q6HRRT - Maintain Oxygen saturations 88-92% - Consider Pulmonology consult - Nicotine Patch - Avoid BB for concern for bronchospasm #Chronic A-fib [id number] HAS-BLED: 2 Rate: Controlled Rhythm: Appears to be regular at the time AC: None upon med d/c Last Echo in 2018 shows EF 60% Unsure if it is paroxysmal, however EKG in 2018 shows Afib with RVR Pt is currently sinus Unsure why patient is on BB with COPD and Afib If she does not have HFrEF, pt would benefit more with Cardizem for rate and rhythm control and have reduced risk for bronchospasm Plan: - Telemetry - Holding BB - Mag >2; K+>4 - Consider Cardio consult #Chronic Normocytic anemia DDx: GI Bleed, Cancer, chronic anemia, medication induced NSAID use: Unsure Blood thinner use: None MCV ~90s, Hgb 10.9 Iron 44, iron saturation 19, ferritin 62 Plan: ? Trend CBC ? Peripheral blood smear ? Transfusion protocol hemoglobin below 7 ? Reticulocyte Count ? Protonix 40 mg daily #Hx of Anxiety Takes Seroquel, xanax and ativan as needed Concern for Polypharmacy Plan: - Resumed home seroquel 100 mg BID - Resumed home Xanax 1 mg BID - Resumed home Ativan 0.5 mg q8h PRN #Low T4 #Hx of L thyroid nodule s/p L thyroid lobectomy Patient not on thyroid medicine TSH wnl (2.19) Plan: - Will consider starting thyroid medicine #? Chronic Bedsore Unable to examine at this time Reported by family Plan: - Wound care as needed - Referral to wound care #Health Maintenance Disposition: Med/Tele DVT prophylaxis: Lovenox GI prophylaxis: Protonix Diet: Regular CODE STATUS: DNR Case discussed with my attending Dr. Jaramillo, and senior resident, Dr. Shelby Horton MD PGY-1 Attending Provider Attestation/Addendum I have discussed and was present for the essential components of the history, physical examination, diagnosis, and treatment plan with the resident. I agree with the patient's care as documented by the resident and amended herein by me. Nilesh Jaramillo DO. Although this document has been carefully reviewed, there may still be some phonetic and other typographical errors. These errors are purely grammatical due to imperfections in the software program and should not be construed in any way to compromise the substance of the patient's medical care during this visit. Patient pending SNF placement, patient will no longer be on hospice per family. They will discuss hospice care later time. Physical therapy evaluation pending
[2024-12-21] MEDS: HYDROcodone/APAP 5/325 TABLET 1 TAB PO (15:26)
[2024-12-21] MEDS: ELMIRON 100 MG PO (15:27)
[2024-12-22] VITALS (10 sets, daily range): BP systolic 103–154; BP diastolic 68–83; PULSE 82–108; RESP 14–27; TEMP 36.3–37.2; O2SAT 93–99
[2024-12-22] MEDS: LEVALBUTEROL RT 0.63 MG/3 ML NEBU INH ×4 (00:45→18:11)
[2024-12-22 05:30] LABS: Basophils # (Auto) 0.0 Thou/mm3 (0.0-0.2); Basophils % (Auto) 0 % (0-2.5); Eosinophils # (Auto) 0.0 Thou/mm3 (0.0-0.5); Eosinophils % (Auto) 0 % (0-10); Hematocrit 31.3 % (36.0-46.0); Hemoglobin 10.1 g/dL (12.0-16.0); Immature Granulocytes Auto 0.04 Thou/mm3 (0.00-0.00); Lymphocytes # (Auto) 0.7 Thou/mm3 (1.0-4.8); Lymphocytes % (Auto) 10 % (10-50); Mean Corpuscular HGB Conc 32.3 g/dl (31.0-37.0); Mean Corpuscular Hemoglobin 30.3 pg (25.0-35.0); Mean Corpuscular Volume 94 fL (80-100); Monocytes # (Auto) 0.4 Thou/mm3 (0.0-0.8); Monocytes % (Auto) 5 % (0-12); Neutrophils # (Auto) 6.3 Thou/mm3 (1.8-7.7); Neutrophils % (Auto) 85 % (37-80); Nucleated Red Blood Cell # 0.00 Thou/mm3 (0.00-0.00); Nucleated Red Blood Cell % 0 /100 WBC (0); Platelet Count 116 Thou/mm3 (140-440); RDW Standard Deviation 44.7 fL (36.4-46.3); Red Blood Count 3.33 Miln/mm3 (4.00-5.20); White Blood Count 7.5 Thou/mm3 (3.6-11.0)
[2024-12-22 06:19] LABS: Alanine Aminotransferase < 7 U/L (10-49); Albumin, Serum 3.6 gm/dL (3.4-4.8); Albumin/Globulin Ratio 1.4 (1.2-2.2); Alkaline Phosphatase 122 U/L (46-116); Anion Gap 10 (7-16); Aspartate Amino Transferase 15 U/L (0-34); BUN/Creatinine Ratio 14 Ratio (12-20); Bilirubin,Total 0.2 mg/dL (0.3-1.2); Blood Urea Nitrogen 10 mg/dL (9-23); Calcium 8.3 mg/dL (8.3-10.6); Calcium (Corrected) 8.6 mg/dL (8.5-10.1); Carbon Dioxide 29.0 mMol/L (20.0-31.0); Chloride 102 mMol/L (98-107); Creatinine (Component) 0.7 mg/dL (0.6-1.3); Estimated Creatinine Clearance 31.0 mL/min (>60); Globulin 2.6 gm/dL (2.3-3.5); Glucose 105 mg/dL (74-106); Magnesium 1.6 mg/dL (1.6-2.6); Osmolality,Calculated 280 (275-295); Phosphorous 1.6 mg/dL (2.4-5.1); Potassium 4.9 mMol/L (3.4-5.1); Sodium 141 mMol/L (136-145); Total Protein 6.2 gm/dL (5.7-8.2); eGFR > 60 See Note
[2024-12-22] MEDS: NAPH,KPH MBDB 1 PACKET (1.5 GM) 2 PACKET PO (07:48)
[2024-12-22] MEDS: HYDROcodone/APAP 5/325 TABLET 1 TAB PO ×2 (07:49→18:06)
[2024-12-22] MEDS: Magnesium Sulfate 4 GM Ivpb 4 GM/50 ML BAG IV (07:49)
[2024-12-22] MEDS: GABAPENTIN 100 MG CAPSULE 200 MG PO (09:52)
[2024-12-22] MEDS: NICOTINE PATCH 14 MG/24 HR PATCH.TD24 TOP (09:53)
[2024-12-22] MEDS: ENOXAPARIN SOD INJ 40 MG/0.4 ML SYRINGE SC (09:53)
[2024-12-22] MEDS: THIAMINE 100 MG TABLET PO (09:53)
[2024-12-22] MEDS: MULTIVITAMINS TABLET 1 TAB PO (09:53)
[2024-12-22] MEDS: ELMIRON 100 MG PO (10:27)
--- NOTE | 2024-12-22 13:27 | PD.RESDS ---
Planned Discharge Date 12/22/24 DS: Providers Provider Date of admission: 12/20/24 18:45 Primary care physician: Shahram Hodges MD Admitting Provider: Rosanna Ghosh MD Attending Provider on Admission: Rosanna Ghosh MD Consults: 12/20/24 15:14 PT [Referral Physical Therapy] Stat Comment: Physician Instructions: 12/20/24 19:11 Referral Registered Dietitian Routine Comment: 12/20/24 19:12 Referral Hospice Routine Comment: Referral Wound Care Routine Comment: 12/21/24 07:00 Referral Speech Therapy Routine Comment: Attending Provider on DC: RESIDENT Patricia Discharging Provider: RESIDENT Patricia Hospital Course Hospital Course Hospital course: Patient seen at bedside. No acute overnight events. Patient is on 2 L of oxygen now, baseline is 4 to 5 L at home. Patient ate meals today. No chest pain, no shortness of breath, no abdominal pain, no nausea, and no vomiting. Time Spent with Patient Time attestation: Total time spent providing and/or coordinating discharge services: Exam Vital Signs Temp Pulse Resp BP Pulse Ox O2 Del Method O2 Flow Rate 98.1 F 96 24 H 135/77 H 95 Humidified Nasal Cannula 4 12/22/24 08:00 12/22/24 08:00 12/22/24 08:00 12/22/24 08:00 12/22/24 08:00 12/22/24 08:00 12/22/24 08:00 Discharge Plan Prescriptions/Referrals Prescriptions/Med Rec: No Action fentanyl 100 mCg/PATCH patch 72 hour 100 mcg TD 2 X WEEKLY PRN (Reason: PAIN) Qty: 0 estradiol [Estrace] 1 MG tablet 2 mg PO QDAY Qty: 0 metoprolol succinate [Toprol XL] 25 MG tablet extended release 24 hr 50 mg PO BID Qty: 0 omeprazole 40 MG capsule,delayed release(DR/EC) 40 mg PO BID Qty: 0 prochlorperazine maleate [Compazine] 10 mg Tablet 10 mg PO TID albuterol sulfate [ProAir HFA] 90 mcg/actuation Hfa Aerosol Inhaler 2 puff INHALATION QID sertraline [Zoloft] 25 mg Tablet 50 mg PO QDAY furosemide 40 mg Tablet 40 mg PO QDAY Elmiron 100 mg Capsule 100 mg PO TID Trelegy Ellipta 100-62.5-25 mcg Blister With Device 1 inh INHALATION QDAY lorazepam 0.5 mg tablet 0.5 mg PO Q8H PRN (Reason: anxiety and agitation) alprazolam 1 mg tablet 1 mg PO BID morphine 30 mg tablet extended release 30 mg PO Q12H quetiapine 50 mg tablet 50 mg PO BID gabapentin 100 mg capsule 100 mg PO QDAY Referrals: Shahram Hodges MD [Primary Care Provider] - Patient/Caregiver Discharge Instructions Print Language: Luxembourgish
--- NOTE | 2024-12-22 15:48 | ESPR_ITS ---
<Statement entered by Rajni Garcia MD - 12/23/24 14:43> I have reviewed the note and agree with the resident's assessment & plan with exceptions as below. I have personally reviewed labs, imaging, home meds/prior records, examined the patient, formulated and discussed management plan with the IM team. Patient examined at bedside today. No acute overnight events. Patient is continuing to eat, appreciate further recommendations from registered dietitian which include multivitamin specific diet and other vitamins. Pending authorization and placement for patient as patient may need to go to SNF with hospice. Repeat hematology and chemistry in the a.m. Rajni Garcia, PGY-2 Internal Medicine Documentation for date of: 12/22/24 Subjective Subjective Interval history: Patient seen at bedside. No acute overnight events. Patient is on 3 L of oxygen now, baseline is 4 to 5 L at home. Patient ate meals today. No chest pain, no shortness of breath, no abdominal pain, no nausea, and no vomiting. Exam Vital Signs Temp Pulse Resp BP Pulse Ox O2 Del Method O2 Flow Rate 98.1 F 94 20 135/77 H 99 Humidified Nasal Cannula 4 12/22/24 08:00 12/22/24 13:48 12/22/24 13:48 12/22/24 08:00 12/22/24 13:48 12/22/24 08:00 12/22/24 13:48 Narrative Exam General: AAOx1, wheel chair bound, uses oxygen, frail, little musculature, weak HEENT: Dry mucous membranes, conjunctiva clear, EOMI, PERRLA, poor dentition, prominent clavicles bilat, some dried scabs present throughout her head Cardiovascular: S1, S2, radial pulses +2 bilat, RRR Pulmonary: Slight wheezing, on 2L NC GI: No tenderness to light or deep palpitation, no guarding, rigidity, rebound tenderness or distension Extremities: No presence of trace or pitting edema in lower extremities bilaterally, dorsalis pedis pulses +1 bilaterally Neuro: AAOx1, Limited neuro exam Psych: Anxious, slightly cooperative Objective Labs 12/23/24 05:03 12/23/24 05:03 Labs: Laboratory Results - last 24 hr 12/22/24 04:48 WBC 7.5 D RBC 3.33 L Hgb 10.1 L Hct 31.3 L MCV 94 MCH 30.3 MCHC 32.3 RDW Std Deviation 44.7 Plt Count 116 L Neut % (Auto) 85 H Lymph % (Auto) 10 [place] % (Auto) 5 Eos % (Auto) 0 Baso % (Auto) 0 Neut # (Auto) 6.3 Lymph # (Auto) 0.7 L [place] # (Auto) 0.4 Eos # (Auto) 0.0 Baso # (Auto) 0.0 Immature Gran # (Auto) 0.04 H Absolute Nucleated RBC 0.00 Immature Gran % 1 H Nucleated RBC % 0 Sodium 141 Potassium 4.9 D Chloride 102 Carbon Dioxide 29.0 Anion Gap 10 BUN 10 Creatinine 0.7 Estim Creat Clear Calc 31.0 L eGFR > 60 BUN/Creatinine Ratio 14 Glucose 105 Calculated Osmolality 280 Calcium 8.3 Corrected Calcium 8.6 Phosphorus 1.6 L Magnesium 1.6 Total Bilirubin 0.2 L AST 15 ALT < 7 L Alkaline Phosphatase 122 H Total Protein 6.2 Albumin 3.6 Globulin 2.6 Albumin/Globulin Ratio 1.4 Quality Measures Quality Measures none Advance care planning discussed with:: patient Assessment & Plan Assessment Current Active Medications: Generic Name Dose Route Start Last Admin Trade Name Freq PRN Reason Stop Dose Admin Acetaminophen 650 mg 12/20/24 19:00 Acetaminophen 325 Mg Tablet PO 01/19/25 18:59 Q6H PRN Fever >100 or pain 1-3 Hydrocodone Bitart/Acetaminophen 1 tab 12/20/24 19:00 12/22/24 07:49 Hydrocodone/Apap 5/325 Tablet PO 12/25/24 18:59 1 tab Q4HR PRN Administration PAIN SCALE 4-6 (Moderate Alprazolam 1 mg 12/20/24 19:10 12/22/24 10:11 Alprazolam 0.25 Mg Tablet PO 12/25/24 19:09 1 mg BID TAISHA Administration Elmiron Cap 100 Mg 0 ea 12/21/24 09:00 12/22/24 10:27 PO 01/20/25 08:59 1 capsule QDAY TAISHA Administration Enoxaparin Sodium 40 mg 12/21/24 09:00 12/22/24 09:53 Enoxaparin Sod Inj 40 Mg/0.4 Ml Syringe SC 01/04/25 08:59 40 mg QDAY TAISHA Administration Estradiol 2 mg 12/22/24 11:00 12/22/24 10:29 Estradiol 1 Mg Tablet PO 01/21/25 10:59 Not Given QDAY TAISHA Gabapentin 200 mg 12/21/24 09:00 12/22/24 09:52 Gabapentin 100 Mg Capsule PO 01/20/25 08:59 200 mg QDAY TAISHA Administration Levalbuterol HCl 0.63 mg 12/21/24 07:00 12/22/24 13:39 Levalbuterol Rt 0.63 Mg/3 Ml Nebu INH 01/20/25 06:59 0.63 mg Q6HRRT TAISHA Administration Lorazepam 0.5 mg 12/20/24 19:05 Lorazepam 0.5 Mg Tablet PO 12/25/24 19:04 Q8H PRN anxiety Morphine Sulfate 10 mg 12/22/24 07:43 Morphine Sulf Liqd 10 Mg/5 Ml Udc PO 12/25/24 19:04 Q4HR PRN breakthrough pain Multivitamins 1 tab 12/22/24 09:00 12/22/24 09:53 Multivitamins Tablet PO 01/21/25 08:59 1 tab QDAY TAISHA Administration Nicotine 14 mg 12/20/24 19:45 12/22/24 09:53 Nicotine Patch 14 Mg/24 Hr Patch.Td24 TOP 01/19/25 19:44 14 mg QDAY TAISHA Administration Ondansetron HCl 4 mg 12/20/24 19:52 Ondansetron Inj 2 Mg/Ml Inj 2 Ml IV 01/19/25 19:51 Q6H PRN NAUSEA OR VOMITING Protocol Pantoprazole Sodium 40 mg 12/23/24 09:00 Pantoprazole 40 Mg Tablet PO 01/20/25 08:59 QDAY TAISHA Quetiapine Fumarate 100 mg 12/20/24 21:00 12/22/24 09:53 Quetiapine Fumarate 100 Mg Tablet PO 01/19/25 20:59 100 mg BID TAISHA Administration Thiamine HCl 100 mg 12/22/24 09:00 12/22/24 09:53 Thiamine 100 Mg Tablet PO 12/31/24 08:59 100 mg QDAY TAISHA Administration Plan Assessment Faina is a 69 y/o female with PMHx COPD (On 4-5 L oxygen at home), anorexia, ? Urinary incontinence, failure to thrive, and recurrent falls who is admitted current for recurrent falls, generalized weakness and failure to thrive. #Generalized Weakness #Recurrent Falls #Failure to thrive #Polypharmacy #Chronic Pain Pt has been on hospice for about two years, is taking an impressive amount of narcotics, analgesics and anxiolytics Pt will need reevaluation for hospice evaluation Pt was on hospice for worsening COPD Will hold on resuming all home pain medicine regimen at this time due to concern for polypharmacy Head CT negative Plan: - RD consult - PT consult - Orthostatic Vitals - Multimodal pain management including Liquid morphine, Gabapentin, [place] and Tylenol - Cardiac Stratification #Hx of COPD #Chronic Smoker GOLD Stage: E Uses 4-5 L at baseline Uses Nebulizer VESTA sparingly Barley uses Advair at home Plan: - Xoponex Breathing Tx Q6HRRT - Maintain Oxygen saturations 88-92% - Consider Pulmonology consult - Nicotine Patch - Avoid BB for concern for bronchospasm #Chronic A-fib [id number] HAS-BLED: 2 Rate: Controlled Rhythm: Appears to be regular at the time AC: None upon med d/c Last Echo in 2018 shows EF 60% Unsure if it is paroxysmal, however EKG in 2018 shows Afib with RVR Pt is currently sinus Unsure why patient is on BB with COPD and Afib If she does not have HFrEF, pt would benefit more with Cardizem for rate and rhythm control and have reduced risk for bronchospasm Plan: - Telemetry - Holding BB - Mag >2; K+>4 - Consider Cardio consult #Chronic Normocytic anemia DDx: GI Bleed, Cancer, chronic anemia, medication induced NSAID use: Unsure Blood thinner use: None MCV ~90s, Hgb 10.9 Iron 44, iron saturation 19, ferritin 62 Plan: ? Trend CBC ? Peripheral blood smear ? Transfusion protocol hemoglobin below 7 ? Reticulocyte Count ? Protonix 40 mg daily #Hx of Anxiety Takes Seroquel, xanax and ativan as needed Concern for Polypharmacy Plan: - Resumed home seroquel 100 mg BID - Resumed home Xanax 1 mg BID - Resumed home Ativan 0.5 mg q8h PRN #Low T4 #Hx of L thyroid nodule s/p L thyroid lobectomy Patient not on thyroid medicine TSH wnl (2.19) Plan: - Will consider starting thyroid medicine #? Chronic [place] Unable to examine at this time Reported by family Plan: - Wound care as needed - Referral to wound care #Health Maintenance Disposition: Med/Tele DVT prophylaxis: Lovenox GI prophylaxis: Protonix Diet: Regular CODE STATUS: DNR Case discussed with my attending Dr. Jaramillo, and senior resident, Dr. Jose Horton MD PGY-1 Attending Provider Attestation/Addendum I have discussed and was present for the essential components of the history, physical examination, diagnosis, and treatment plan with the resident. I agree with the patient's care as documented by the resident and amended herein by me. Nilesh Jaramillo DO. Although this document has been carefully reviewed, there may still be some phonetic and other typographical errors. These errors are purely grammatical due to imperfections in the software program and should not be construed in any way to compromise the substance of the patient's medical care during this visit.
--- NOTE | 2024-12-22 15:51 | PC.SS ---
SS spoke to staff who indicated that patient is not meeting inpatient Medicare criteria. Patient does not have [employer]. Patient's insurance will not cover the cost of SNF placement. SS presented this to son and his , Jaja. Family upset. Family stating they cannot care for her at home. Patient was on hospice previously. SS attempted to provide family with alternate options such as board and care, private care providers, or paying out of pocket for SNF. SS already connected family with financial counselor to attempt to qualify her with [employer]. Patient's son provided all verifications needed. Financial counselor states it is not up to [employer] worker to complete application. Family was upated on patient not meeting in patient criteria and will be discharged tomorrow.
[2024-12-23] VITALS (16 sets, daily range): BP systolic 133–178; BP diastolic 72–93; PULSE 73–114; RESP 18–24; TEMP 36.2–36.8; O2SAT 96–100
[2024-12-23] MEDS: LEVALBUTEROL RT 0.63 MG/3 ML NEBU INH ×3 (00:34→12:35)
[2024-12-23 06:38] LABS: Basophils # (Auto) 0.0 Thou/mm3 (0.0-0.2); Basophils % (Auto) 0 % (0-2.5); Eosinophils # (Auto) 0.2 Thou/mm3 (0.0-0.5); Eosinophils % (Auto) 4 % (0-10); Hematocrit 29.8 % (36.0-46.0); Hemoglobin 9.7 g/dL (12.0-16.0); Immature Granulocytes Auto 0.01 Thou/mm3 (0.00-0.00); Lymphocytes # (Auto) 1.2 Thou/mm3 (1.0-4.8); Lymphocytes % (Auto) 21 % (10-50); Mean Corpuscular HGB Conc 32.6 g/dl (31.0-37.0); Mean Corpuscular Hemoglobin 30.9 pg (25.0-35.0); Mean Corpuscular Volume 95 fL (80-100); Monocytes # (Auto) 0.4 Thou/mm3 (0.0-0.8); Monocytes % (Auto) 7 % (0-12); Neutrophils # (Auto) 3.8 Thou/mm3 (1.8-7.7); Neutrophils % (Auto) 68 % (37-80); Nucleated Red Blood Cell # 0.00 Thou/mm3 (0.00-0.00); Nucleated Red Blood Cell % 0 /100 WBC (0); Platelet Count 118 Thou/mm3 (140-440); RDW Standard Deviation 46.3 fL (36.4-46.3); Red Blood Count 3.14 Miln/mm3 (4.00-5.20); White Blood Count 5.6 Thou/mm3 (3.6-11.0)
[2024-12-23 07:02] LABS: Alanine Aminotransferase < 7 U/L (10-49); Albumin, Serum 3.7 gm/dL (3.4-4.8); Albumin/Globulin Ratio 1.4 (1.2-2.2); Alkaline Phosphatase 124 U/L (46-116); Anion Gap 8 (7-16); Aspartate Amino Transferase 15 U/L (0-34); BUN/Creatinine Ratio 17 Ratio (12-20); Bilirubin,Total 0.3 mg/dL (0.3-1.2); Blood Urea Nitrogen 12 mg/dL (9-23); Calcium 8.6 mg/dL (8.3-10.6); Calcium (Corrected) 8.8 mg/dL (8.5-10.1); Carbon Dioxide 32.7 mMol/L (20.0-31.0); Chloride 100 mMol/L (98-107); Creatinine (Component) 0.7 mg/dL (0.6-1.3); Estimated Creatinine Clearance 31.0 mL/min (>60); Globulin 2.6 gm/dL (2.3-3.5); Glucose 71 mg/dL (74-106); Magnesium 2.1 mg/dL (1.6-2.6); Osmolality,Calculated 278 (275-295); Phosphorous 2.2 mg/dL (2.4-5.1); Potassium 4.1 mMol/L (3.4-5.1); Sodium 141 mMol/L (136-145); Total Protein 6.3 gm/dL (5.7-8.2); eGFR > 60 See Note
[2024-12-23] MEDS: NICOTINE PATCH 14 MG/24 HR PATCH.TD24 TOP (08:56)
[2024-12-23] MEDS: PANTOPRAZOLE 40 MG TABLET PO (08:57)
[2024-12-23] MEDS: GABAPENTIN 100 MG CAPSULE 200 MG PO (08:57)
[2024-12-23] MEDS: THIAMINE 100 MG TABLET PO (08:57)
[2024-12-23] MEDS: NAPH,KPH MBDB 1 PACKET (1.5 GM) PO (08:57)
[2024-12-23] MEDS: ENOXAPARIN SOD INJ 40 MG/0.4 ML SYRINGE SC (08:57)
[2024-12-23] MEDS: ELMIRON 100 MG PO (08:58)
[2024-12-23] MEDS: MULTIVITAMINS TABLET 1 TAB PO (09:21)
--- NOTE | 2024-12-23 11:57 | ESPR_ITS ---
<Statement entered by Rajni Garcia MD - 12/23/24 17:32> I have reviewed the note and agree with the resident's assessment & plan with exceptions as below. I have personally reviewed labs, imaging, home meds/prior records, examined the patient, formulated and discussed management plan with the IM team. Patient examined at bedside today. Patient is alert, eating breakfast at this time. She is wondering when she is go home. Patient is still pending authorization for SNF placement with hospice. Authorization likely to come in on Friday. Will continue with current management, physical therapy and registered dietitian on consult, appreciate recs. Repeat chemistry and hematology in the a.m. Rajni Garcia, PGY-2 Internal Medicine Documentation for date of: 12/23/24 Subjective Subjective Interval history: Patient seen at bedside. No acute overnight events. Patient is on 2 L of oxygen now, baseline is 4 to 5 L at home. Patient ate meals today. No chest pain, no shortness of breath, no abdominal pain, no nausea, and no vomiting Exam Vital Signs Temp Pulse Resp BP Pulse Ox O2 Del Method O2 Flow Rate 97.1 F 73 24 H 162/88 H 99 Nasal Cannula 2 12/23/24 07:41 12/23/24 07:41 12/23/24 07:41 12/23/24 07:41 12/23/24 07:41 12/23/24 07:41 12/23/24 07:41 Narrative Exam General: AAOx1, wheel chair bound, uses oxygen, frail, little musculature, weak HEENT: Dry mucous membranes, conjunctiva clear, EOMI, PERRLA, poor dentition, prominent clavicles bilat, some dried scabs present throughout her head Cardiovascular: S1, S2, radial pulses +2 bilat, RRR Pulmonary: Slight wheezing, on 2L NC GI: No tenderness to light or deep palpitation, no guarding, rigidity, rebound tenderness or distension Extremities: No presence of trace or pitting edema in lower extremities bilaterally, dorsalis pedis pulses +1 bilaterally Neuro: AAOx1, Limited neuro exam Psych: Anxious, slightly cooperative Objective Labs 12/23/24 05:03 12/23/24 05:03 Labs: Laboratory Results - last 24 hr 12/23/24 05:03 WBC 5.6 RBC 3.14 L Hgb 9.7 L Hct 29.8 L MCV 95 MCH 30.9 MCHC 32.6 RDW Std Deviation 46.3 Plt Count 118 L Neut % (Auto) 68 Lymph % (Auto) 21 [place] % (Auto) 7 Eos % (Auto) 4 Baso % (Auto) 0 Neut # (Auto) 3.8 Lymph # (Auto) 1.2 [place] # (Auto) 0.4 Eos # (Auto) 0.2 Baso # (Auto) 0.0 Immature Gran # (Auto) 0.01 H Absolute Nucleated RBC 0.00 Immature Gran % 0 Nucleated RBC % 0 Sodium 141 Potassium 4.1 D Chloride 100 Carbon Dioxide 32.7 H Anion Gap 8 BUN 12 Creatinine 0.7 Estim Creat Clear Calc 31.0 L eGFR > 60 BUN/Creatinine Ratio 17 Glucose 71 L Calculated Osmolality 278 Calcium 8.6 Corrected Calcium 8.8 Phosphorus 2.2 L Magnesium 2.1 Total Bilirubin 0.3 AST 15 ALT < 7 L Alkaline Phosphatase 124 H Total Protein 6.3 Albumin 3.7 Globulin 2.6 Albumin/Globulin Ratio 1.4 Quality Measures Quality Measures none Advance care planning discussed with:: patient Assessment & Plan Assessment Current Active Medications: Generic Name Dose Route Start Last Admin Trade Name Freq PRN Reason Stop Dose Admin Acetaminophen 650 mg 12/20/24 19:00 Acetaminophen 325 Mg Tablet PO 01/19/25 18:59 Q6H PRN Fever >100 or pain 1-3 Hydrocodone Bitart/Acetaminophen 1 tab 12/20/24 19:00 12/22/24 18:06 Hydrocodone/Apap 5/325 Tablet PO 12/25/24 18:59 1 tab Q4HR PRN Administration PAIN SCALE 4-6 (Moderate Alprazolam 1 mg 12/20/24 19:10 12/23/24 08:57 Alprazolam 0.25 Mg Tablet PO 12/25/24 19:09 1 mg BID TAISHA Administration Elmiron Cap 100 Mg 0 ea 12/21/24 09:00 12/23/24 08:58 PO 01/20/25 08:59 1 capsule QDAY TAISHA Administration Enoxaparin Sodium 40 mg 12/21/24 09:00 12/23/24 08:57 Enoxaparin Sod Inj 40 Mg/0.4 Ml Syringe SC 01/04/25 08:59 40 mg QDAY TAISHA Administration Estradiol 2 mg 12/22/24 11:00 12/23/24 08:57 Estradiol 1 Mg Tablet PO 01/21/25 10:59 2 mg QDAY TAISHA Administration Gabapentin 200 mg 12/21/24 09:00 12/23/24 08:57 Gabapentin 100 Mg Capsule PO 01/20/25 08:59 200 mg QDAY TAISHA Administration Levalbuterol HCl 0.63 mg 12/21/24 07:00 12/23/24 06:29 Levalbuterol Rt 0.63 Mg/3 Ml Nebu INH 01/20/25 06:59 0.63 mg Q6HRRT TAISHA Administration Lorazepam 0.5 mg 12/20/24 19:05 Lorazepam 0.5 Mg Tablet PO 12/25/24 19:04 Q8H PRN anxiety Morphine Sulfate 10 mg 12/22/24 07:43 Morphine Sulf Liqd 10 Mg/5 Ml Udc PO 12/25/24 19:04 Q4HR PRN breakthrough pain Multivitamins 1 tab 12/22/24 09:00 12/23/24 09:21 Multivitamins Tablet PO 01/21/25 08:59 1 tab QDAY TAISHA Administration Nicotine 14 mg 12/20/24 19:45 12/23/24 08:56 Nicotine Patch 14 Mg/24 Hr Patch.Td24 TOP 01/19/25 19:44 14 mg QDAY TAISHA Administration Ondansetron HCl 4 mg 12/20/24 19:52 Ondansetron Inj 2 Mg/Ml Inj 2 Ml IV 01/19/25 19:51 Q6H PRN NAUSEA OR VOMITING Protocol Pantoprazole Sodium 40 mg 12/23/24 09:00 12/23/24 08:57 Pantoprazole 40 Mg Tablet PO 01/20/25 08:59 40 mg QDAY TAISHA Administration Quetiapine Fumarate 100 mg 12/20/24 21:00 12/23/24 08:57 Quetiapine Fumarate 100 Mg Tablet PO 01/19/25 20:59 100 mg BID TAISHA Administration Thiamine HCl 100 mg 12/22/24 09:00 12/23/24 08:57 Thiamine 100 Mg Tablet PO 12/31/24 08:59 100 mg QDAY TAISHA Administration Plan Assessment: 69 y/o female with PMHx COPD (On 4-5 L oxygen at home), anorexia, ? Urinary incontinence, failure to thrive, and recurrent falls who is admitted current for recurrent falls, generalized weakness and failure to thrive. #Generalized Weakness #Recurrent Falls #Failure to thrive #Polypharmacy #Chronic Pain Pt has been on hospice for about two years, is taking an impressive amount of narcotics, analgesics and anxiolytics Pt will need reevaluation for hospice evaluation Pt was on hospice for worsening COPD Will hold on resuming all home pain medicine regimen at this time due to concern for polypharmacy Head CT negative Plan: - RD consult, see recs - PT consult, see recs - Multimodal pain management including Liquid morphine, Gabapentin, [place] and Tylenol #Hx of COPD #Chronic Smoker GOLD Stage: E Uses 4-5 L at baseline Uses Nebulizer VESTA sparingly Barley uses Advair at home Plan: - Xoponex Breathing Tx Q6HRRT - Maintain Oxygen saturations 88-92% - Consider Pulmonology consult - Nicotine Patch - Avoid BB for concern for bronchospasm #Chronic A-fib [id number] HAS-BLED: 2 Rate: Controlled Rhythm: Appears to be regular at the time AC: None upon med d/c Last Echo in 2018 shows EF 60% Unsure if it is paroxysmal, however EKG in 2018 shows Afib with RVR Pt is currently sinus Unsure why patient is on BB with COPD and Afib If she does not have HFrEF, pt would benefit more with Cardizem for rate and rhythm control and have reduced risk for bronchospasm Plan: - Telemetry - Holding BB - Mag >2; K+>4 - Consider Cardio consult #Chronic Normocytic anemia DDx: GI Bleed, Cancer, chronic anemia, medication induced NSAID use: Unsure Blood thinner use: None MCV ~90s, Hgb 10.9 Iron 44, iron saturation 19, ferritin 62 Plan: ? Trend CBC ? Peripheral blood smear ? Transfusion protocol hemoglobin below 7 ? Reticulocyte Count ? Protonix 40 mg daily #Hx of Anxiety Takes Seroquel, xanax and ativan as needed Concern for Polypharmacy Plan: - Resumed home seroquel 100 mg BID - Resumed home Xanax 1 mg BID - Resumed home Ativan 0.5 mg q8h PRN #Low T4 #Hx of L thyroid nodule s/p L thyroid lobectomy Patient not on thyroid medicine TSH wnl (2.19) Plan: - Will consider starting thyroid medicine #? Chronic [place] Unable to examine at this time Reported by family Plan: - Wound care as needed - Referral to wound care #Health Maintenance Disposition: Med/Tele DVT prophylaxis: Lovenox GI prophylaxis: Protonix Diet: Regular CODE STATUS: DNR Case discussed with my attending Dr. Jaramillo, and senior resident, Dr. Jose Horton MD PGY-1 Attending Provider Attestation/Addendum I have discussed and was present for the essential components of the history, physical examination, diagnosis, and treatment plan with the resident. I agree with the patient's care as documented by the resident and amended herein by me. Nilesh Jaramillo, DO. Although this document has been carefully reviewed, there may still be some phonetic and other typographical errors. These errors are purely grammatical due to imperfections in the software program and should not be construed in any way to compromise the substance of the patient's medical care during this visit. Pending SNF placement Friday, 12/27. Patient will stay until that time. Patient's family cannot take the patient home. Patient stable otherwise
--- NOTE | 2024-12-23 13:36 | PC.SS ---
Follow up note: PRECIOUS spoke to both patient's son and daughter in law this morning with an update that our financial counselor indicates that patient should show early Friday/Friday that she now has [employer] with SOC of $2245.00 monthly. Family agreeable to paying this amount to facility. [facility] agreed [facility] accept. Daughter in law works at facility. They will be taking patient without hospice services. Family agreeable. PRECIOUS [facility] @ [place]. Tentative d/c Friday to [facility].
--- NOTE | 2024-12-23 17:40 | PC.NURSE ---
Rounding with MD Tingle per MD continue with administration of morphine and lorazepam d/t increasing HR at this time d/t possible withdrawals.
[2024-12-23] MEDS: MORPHINE SULF LIQD 10 MG/5 ML UDC PO (17:53)
--- NOTE | 2024-12-23 18:11 | EKG_ITS ---
[facility] Test Date: 2024-12-23 Pat Name: NICOLE LOWERY [facility] Gender: Female Front End Engineer: MINDI : 1955 Requested By: Rios Dockery Order Number: [id number] Reading MD: Rios Dockery Measurements Intervals [place] Rate: 104 P: 85 ND: 178 QRS: 55 QRSD: 78 T: 64 QT: 340 QTc: 449 Interpretive Statements SINUS TACHYCARDIA ABNORMAL RHYTHM ECG Compared to ECG 12/20/2024 15:16:40 Sinus rhythm no longer present Indeterminate axis no longer present /store/S0/[id number]
[2024-12-23] MEDS: RINGERS LACTATED 1000 ML 1,000 ML 999 ML IV (18:22)
[2024-12-23] MEDS: LABETALOL INJ 5 MG/ML VIAL 20 ML 10 MG IVP (22:48)
[2024-12-24] VITALS (12 sets, daily range): BP systolic 119–157; BP diastolic 79–100; PULSE 72–101; RESP 15–22; TEMP 36.2–37.2; O2SAT 94–100; BMI 11.2
[2024-12-24 06:29] LABS: Basophils # (Auto) 0.0 Thou/mm3 (0.0-0.2); Basophils % (Auto) 1 % (0-2.5); Eosinophils # (Auto) 0.3 Thou/mm3 (0.0-0.5); Eosinophils % (Auto) 5 % (0-10); Hematocrit 34.1 % (36.0-46.0); Hemoglobin 10.7 g/dL (12.0-16.0); Immature Granulocytes Auto 0.02 Thou/mm3 (0.00-0.00); Lymphocytes # (Auto) 2.0 Thou/mm3 (1.0-4.8); Lymphocytes % (Auto) 36 % (10-50); Mean Corpuscular HGB Conc 31.4 g/dl (31.0-37.0); Mean Corpuscular Hemoglobin 30.6 pg (25.0-35.0); Mean Corpuscular Volume 97 fL (80-100); Monocytes # (Auto) 0.3 Thou/mm3 (0.0-0.8); Monocytes % (Auto) 6 % (0-12); Neutrophils # (Auto) 2.8 Thou/mm3 (1.8-7.7); Neutrophils % (Auto) 52 % (37-80); Nucleated Red Blood Cell # 0.00 Thou/mm3 (0.00-0.00); Nucleated Red Blood Cell % 0 /100 WBC (0); Platelet Count 141 Thou/mm3 (140-440); RDW Standard Deviation 48.6 fL (36.4-46.3); Red Blood Count 3.50 Miln/mm3 (4.00-5.20); White Blood Count 5.5 Thou/mm3 (3.6-11.0)
[2024-12-24 07:20] LABS: Alanine Aminotransferase < 7 U/L (10-49); Albumin, Serum 4.0 gm/dL (3.4-4.8); Albumin/Globulin Ratio 1.3 (1.2-2.2); Alkaline Phosphatase 127 U/L (46-116); Anion Gap 10 (7-16); Aspartate Amino Transferase 14 U/L (0-34); BUN/Creatinine Ratio 15 Ratio (12-20); Bilirubin,Total 0.4 mg/dL (0.3-1.2); Blood Urea Nitrogen 12 mg/dL (9-23); Calcium 9.0 mg/dL (8.3-10.6); Calcium (Corrected) 9.0 mg/dL (8.5-10.1); Carbon Dioxide 29.6 mMol/L (20.0-31.0); Chloride 101 mMol/L (98-107); Creatinine (Component) 0.8 mg/dL (0.6-1.3); Estimated Creatinine Clearance 27.1 mL/min (>60); Globulin 3.0 gm/dL (2.3-3.5); Glucose 77 mg/dL (74-106); Magnesium 1.8 mg/dL (1.6-2.6); Osmolality,Calculated 279 (275-295); Phosphorous 3.0 mg/dL (2.4-5.1); Potassium 3.9 mMol/L (3.4-5.1); Sodium 141 mMol/L (136-145); Total Protein 7.0 gm/dL (5.7-8.2); eGFR > 60 See Note
[2024-12-24] MEDS: MORPHINE SULF LIQD 10 MG/5 ML UDC PO ×2 (09:13→14:26)
[2024-12-24] MEDS: PANTOPRAZOLE 40 MG TABLET PO (09:13)
[2024-12-24] MEDS: NICOTINE PATCH 14 MG/24 HR PATCH.TD24 TOP (09:13)
[2024-12-24] MEDS: THIAMINE 100 MG TABLET PO (09:13)
[2024-12-24] MEDS: ENOXAPARIN SOD INJ 40 MG/0.4 ML SYRINGE SC (09:13)
[2024-12-24] MEDS: ELMIRON 100 MG PO (09:14)
[2024-12-24] MEDS: GABAPENTIN 100 MG CAPSULE 200 MG PO (09:14)
[2024-12-24] MEDS: MULTIVITAMINS TABLET 1 TAB PO (09:14)
--- NOTE | 2024-12-24 10:51 | PD.RESPRO ---
Documentation for date of: 12/24/24 Subjective Subjective Interval history: Pt examined at bedside. No acute overnight events. Pt reports she is doing well. She says she is eating good and is wondering when she is going to go home. No other complaints at this time. Exam Vital Signs Temp Pulse Resp BP Pulse Ox O2 Del Method O2 Flow Rate 97.7 F 89 16 157/100 H 97 Nasal Cannula 3 12/24/24 08:00 12/24/24 08:00 12/24/24 08:00 12/24/24 08:00 12/24/24 08:00 12/24/24 08:00 12/24/24 08:00 Narrative Exam General: AAOx1, wheel chair bound, uses oxygen, frail, little musculature, weak HEENT: Dry mucous membranes, conjunctiva clear, EOMI, PERRLA, poor dentition, prominent clavicles bilat, some dried scabs present throughout her head Cardiovascular: S1, S2, radial pulses +2 bilat, RRR Pulmonary: Slight wheezing, on 2L NC GI: No tenderness to light or deep palpitation, no guarding, rigidity, rebound tenderness or distension Extremities: No presence of trace or pitting edema in lower extremities bilaterally, dorsalis pedis pulses +1 bilaterally Neuro: AAOx1, Limited neuro exam Psych: Anxious, slightly cooperative Objective Labs 12/24/24 04:47 12/24/24 04:47 Labs: Laboratory Results - last 24 hr 12/24/24 04:47 WBC 5.5 RBC 3.50 L Hgb 10.7 L Hct 34.1 L MCV 97 MCH 30.6 MCHC 31.4 RDW Std Deviation 48.6 H Plt Count 141 Neut % (Auto) 52 Lymph % (Auto) 36 [place] % (Auto) 6 Eos % (Auto) 5 Baso % (Auto) 1 Neut # (Auto) 2.8 Lymph # (Auto) 2.0 [place] # (Auto) 0.3 Eos # (Auto) 0.3 Baso # (Auto) 0.0 Immature Gran # (Auto) 0.02 H Absolute Nucleated RBC 0.00 Immature Gran % 0 Nucleated RBC % 0 Sodium 141 Potassium 3.9 Chloride 101 Carbon Dioxide 29.6 Anion Gap 10 BUN 12 Creatinine 0.8 Estim Creat Clear Calc 27.1 L eGFR > 60 BUN/Creatinine Ratio 15 Glucose 77 Calculated Osmolality 279 Calcium 9.0 Corrected Calcium 9.0 Phosphorus 3.0 Magnesium 1.8 Total Bilirubin 0.4 AST 14 ALT < 7 L Alkaline Phosphatase 127 H Total Protein 7.0 Albumin 4.0 Globulin 3.0 Albumin/Globulin Ratio 1.3 Quality Measures Quality Measures none Advance care planning discussed with:: patient Assessment & Plan Assessment Current Active Medications: Generic Name Dose Route Start Last Admin Trade Name Freq PRN Reason Stop Dose Admin Acetaminophen 650 mg 12/20/24 19:00 Acetaminophen 325 Mg Tablet PO 01/19/25 18:59 Q6H PRN Fever >100 or pain 1-3 Hydrocodone Bitart/Acetaminophen 1 tab 12/20/24 19:00 12/22/24 18:06 Hydrocodone/Apap 5/325 Tablet PO 12/25/24 18:59 1 tab Q4HR PRN Administration PAIN SCALE 4-6 (Moderate Alprazolam 1 mg 12/20/24 19:10 12/24/24 09:14 Alprazolam 0.25 Mg Tablet PO 12/25/24 19:09 1 mg BID TAISHA Administration Elmiron Cap 100 Mg 0 ea 12/21/24 09:00 12/24/24 09:14 PO 01/20/25 08:59 1 capsule QDAY TAISHA Administration Enoxaparin Sodium 40 mg 12/21/24 09:00 12/24/24 09:13 Enoxaparin Sod Inj 40 Mg/0.4 Ml Syringe SC 01/04/25 08:59 40 mg QDAY TAISHA Administration Estradiol 2 mg 12/22/24 11:00 12/24/24 09:13 Estradiol 1 Mg Tablet PO 01/21/25 10:59 2 mg QDAY TAISHA Administration Gabapentin 200 mg 12/21/24 09:00 12/24/24 09:14 Gabapentin 100 Mg Capsule PO 01/20/25 08:59 200 mg QDAY TAISHA Administration Labetalol HCl 10 mg 12/23/24 22:22 12/23/24 22:48 Labetalol Inj 5 Mg/Ml Vial 20 Ml IVP 01/22/25 22:21 10 mg Q6HR PRN Administration BP>160 or HR>75 Levalbuterol HCl 0.63 mg 12/24/24 06:31 Levalbuterol Rt 0.63 Mg/3 Ml Nebu INH 01/20/25 06:59 Q6HRRT PRN wheezing or SOB Lorazepam 0.5 mg 12/20/24 19:05 12/23/24 17:59 Lorazepam 0.5 Mg Tablet PO 12/25/24 19:04 0.5 mg Q8H PRN Administration anxiety Morphine Sulfate 10 mg 12/22/24 07:43 12/24/24 09:13 Morphine Sulf Liqd 10 Mg/5 Ml Udc PO 12/25/24 19:04 10 mg Q4HR PRN Administration breakthrough pain Multivitamins 1 tab 12/22/24 09:00 12/24/24 09:14 Multivitamins Tablet PO 01/21/25 08:59 1 tab QDAY TAISHA Administration Nicotine 14 mg 12/20/24 19:45 12/24/24 09:13 Nicotine Patch 14 Mg/24 Hr Patch.Td24 TOP 01/19/25 19:44 14 mg QDAY TAISHA Administration Ondansetron HCl 4 mg 12/20/24 19:52 Ondansetron Inj 2 Mg/Ml Inj 2 Ml IV 01/19/25 19:51 Q6H PRN NAUSEA OR VOMITING Protocol Pantoprazole Sodium 40 mg 12/23/24 09:00 12/24/24 09:13 Pantoprazole 40 Mg Tablet PO 01/20/25 08:59 40 mg QDAY TAISHA Administration Quetiapine Fumarate 100 mg 12/20/24 21:00 12/24/24 09:14 Quetiapine Fumarate 100 Mg Tablet PO 01/19/25 20:59 100 mg BID TAISHA Administration Thiamine HCl 100 mg 12/22/24 09:00 12/24/24 09:13 Thiamine 100 Mg Tablet PO 12/31/24 08:59 100 mg QDAY TAISHA Administration Plan Assessment: 69 y/o female with PMHx COPD (On 4-5 L oxygen at home), anorexia, ? Urinary incontinence, failure to thrive, and recurrent falls who is admitted current for recurrent falls, generalized weakness and failure to thrive. #Generalized Weakness #Recurrent Falls #Failure to thrive #Polypharmacy #Chronic Pain Pt has been on hospice for about two years, is taking an impressive amount of narcotics, analgesics and anxiolytics Pt will need reevaluation for hospice evaluation Pt was on hospice for worsening COPD Will hold on resuming all home pain medicine regimen at this time due to concern for polypharmacy Head CT negative Pending Authorization for SNF/Hospice, plan to be d/c on Friday Plan: - RD consult, see recs - PT consult, see recs - Multimodal pain management including Liquid morphine, Gabapentin, [place] and Tylenol #Hx of COPD #Chronic Smoker GOLD Stage: E Uses 4-5 L at baseline Uses Nebulizer VESTA sparingly Barley uses Advair at home Plan: - Xoponex Breathing Tx Q6HRRT - Maintain Oxygen saturations 88-92% - Consider Pulmonology consult - Nicotine Patch - Avoid BB for concern for bronchospasm #Chronic A-fib [id number] HAS-BLED: 2 Rate: Controlled Rhythm: Appears to be regular at the time AC: None upon med d/c Last Echo in 2018 shows EF 60% Unsure if it is paroxysmal, however EKG in 2018 shows Afib with RVR Pt is currently sinus Unsure why patient is on BB with COPD and Afib If she does not have HFrEF, pt would benefit more with Cardizem for rate and rhythm control and have reduced risk for bronchospasm Plan: - Telemetry - Holding BB - Mag >2; K+>4 - Consider Cardio consult #Chronic Normocytic anemia DDx: GI Bleed, Cancer, chronic anemia, medication induced NSAID use: Unsure Blood thinner use: None MCV ~90s, Hgb 10.9 Iron 44, iron saturation 19, ferritin 62 PBS shows mild normocytic anemia RTC wnl Plan: ? Trend CBC ? Transfusion protocol hemoglobin below 7 ? Protonix 40 mg daily #Hx of Anxiety Takes Seroquel, xanax and ativan as needed Concern for Polypharmacy Plan: - Continue home seroquel 100 mg BID - Continue home Xanax 1 mg BID - Continue home Ativan 0.5 mg q8h PRN #Low T4 #Hx of L thyroid nodule s/p L thyroid lobectomy Patient not on thyroid medicine TSH wnl (2.19) Plan: - Will consider starting thyroid medicine #? Chronic [place] Unable to examine at this time Reported by family Plan: - Wound care as needed - Referral to wound care #Health Maintenance Disposition: Med/Tele DVT prophylaxis: Lovenox GI prophylaxis: Protonix Diet: Regular CODE STATUS: DNR Case discussed with my attending Dr. Clint Garcia, PGY-2 Attending Provider Attestation/Addendum I have discussed and was present for the essential components of the history, physical examination, diagnosis, and treatment plan with the resident. I agree with the patient's care as documented by the resident and amended herein by me. Nilesh Jaramillo DO. Although this document has been carefully reviewed, there may still be some phonetic and other typographical errors. These errors are purely grammatical due to imperfections in the software program and should not be construed in any way to compromise the substance of the patient's medical care during this visit. SNF authorization obtained, will DC to SNF today
--- NOTE | 2024-12-24 14:16 | PD.RESDS ---
Planned Discharge Date 12/24/24 DS: Providers Provider Date of admission: 12/20/24 18:45 Primary care physician: Shahram Hodges MD Admitting Provider: Rosanna Ghosh MD Attending Provider on Admission: Rosanna Ghosh MD Consults: 12/20/24 15:14 PT [Referral Physical Therapy] Stat Comment: Physician Instructions: 12/20/24 19:11 Referral Registered Dietitian Routine Comment: 12/20/24 19:12 Referral Hospice Routine Comment: Referral Wound Care Routine Comment: 12/21/24 07:00 Referral Speech Therapy Routine Comment: Attending Provider on DC: Rios Jaramillo DO Discharging Provider: Rios Jaramillo DO DS: Diagnosis Problem List Completed Was Problem List Reviewed/Reconciled?: Yes Hospital Course Hospital Course Hospital course: Faina is a 69 y/o female with PMHx COPD (On 4-5 L oxygen at home), anorexia, ? Urinary incontinence, failure to thrive, and recurrent falls who was admitted to [facility] on 12/20/2024 for generalized weakness, and failure to thrive. She came to the ED with a temperature of 98.0 F, HR of 102, RR 18, and a blood pressure of 127/80, saturating 98% on Room air. Pt was worked up and was found to have a Hgb of 10.9, WBC 6.5, Potassium 3.9, Na 143, Cr 0.8, Mg 1.7, T4 0.8, TSH 2.19. EKG showed normal rate and sinus rhythm, qtc 390. CXR shows bibasilar bronchitis. Head CT was done and showed no hemorrhage, mass effect or midline shift. Medicine was consulted and pt was admitted to the floors. While on the floors she was seen by PT who had recommended SNF. SHe was also seen by RD who recommended multivitamins and diet for patient. She was seen by social media marketing manager in regards to SNF. She was restarted on her home meds and pt was eventually accepted to SNF. Pt was then discharged with the following instructions. Discharge Instructions: Follow up with your PCP within one to two weeks of discharge Take your medicines as prescribed I am prescribing you a multivitamin, take as prescribed Return to ED if your symptoms worsen or return #Generalized Weakness #Recurrent Falls #Failure to thrive #Polypharmacy #Chronic Pain Hx of COPD #Chronic Smoker #Chronic A-fib #Chronic Normocytic anemia #Hx of Anxiety #Low T4 #Hx of L thyroid nodule s/p L thyroid lobectomy #? Chronic [place] Discharge summary was reviewed with my attending Dr. Clint Garcia, PGY-2 Time Spent with Patient Time attestation: Total time spent providing and/or coordinating discharge services: Time spent: Greater than 30 minutes Exam Vital Signs Temp Pulse Resp BP Pulse Ox O2 Del Method O2 Flow Rate 98.3 F 88 22 H 119/79 100 Nasal Cannula 5 12/24/24 11:52 12/24/24 12:47 12/24/24 12:47 12/24/24 11:52 12/24/24 12:47 12/24/24 11:52 12/24/24 12:47 Narrative Exam General: AAOx2, wheel chair bound, uses oxygen, frail, little musculature, weak HEENT: Dry mucous membranes, conjunctiva clear, EOMI, PERRLA, poor dentition, prominent clavicles bilat, some dried scabs present throughout her head Cardiovascular: S1, S2, radial pulses +2 bilat, RRR Pulmonary: Slight wheezing, on 2L NC GI: No tenderness to light or deep palpitation, no guarding, rigidity, rebound tenderness or distension Extremities: No presence of trace or pitting edema in lower extremities bilaterally, dorsalis pedis pulses +1 bilaterally Neuro: AAOx2, Limited neuro exam Psych: Anxious, slightly cooperative Discharge Plan Plan Patient Disposition: er Skilled [facility] [place] [facility] (SNF) Patient condition on transfer: Stable Care Plan Goals: Discharge Instructions: Follow up with your PCP within one to two weeks of discharge Take your medicines as prescribed I am prescribing you a multivitamin, take as prescribed Return to ED if your symptoms worsen or return Prescriptions/Referrals Prescriptions/Med Rec: New multivitamin Tablet 1 tab PO QDAY 30 Days Qty: 30 0RF Rx Instructions: Take one tablet by mouth every day Continued fentanyl 100 mCg/PATCH patch 72 hour 100 mcg TD 2 X WEEKLY PRN (Reason: PAIN) Qty: 0 estradiol [Estrace] 1 MG tablet 2 mg PO QDAY Qty: 0 omeprazole 40 MG capsule,delayed release(DR/EC) 40 mg PO BID Qty: 0 prochlorperazine maleate [Compazine] 10 mg Tablet 10 mg PO TID albuterol sulfate [ProAir HFA] 90 mcg/actuation Hfa Aerosol Inhaler 2 puff INHALATION QID sertraline [Zoloft] 25 mg Tablet 50 mg PO QDAY Elmiron 100 mg Capsule 100 mg PO TID Trelegy Ellipta 100-62.5-25 mcg Blister With Device 1 inh INHALATION QDAY lorazepam 0.5 mg tablet 0.5 mg PO Q8H PRN (Reason: anxiety and agitation) alprazolam 1 mg tablet 1 mg PO BID morphine 30 mg tablet extended release 30 mg PO Q12H quetiapine 50 mg tablet 50 mg PO BID gabapentin 100 mg capsule 100 mg PO QDAY Held metoprolol succinate [Toprol XL] 25 MG tablet extended release 24 hr 50 mg PO BID Qty: 0 Hold Instructions: resume with PCP, afib and BB with hx of COPD usually not indicated Discontinued furosemide 40 mg Tablet 40 mg PO QDAY Referrals: Shahram Hodges MD [Primary Care Provider] - Patient/Caregiver Discharge Instructions Discharge Activity: activity as tolerated Education Materials: Chronic Lung Disease Quit Smoking, Chronic Lung Disease Stress, Chronic Lung Disease Strength, ED Anorexia Nervosa Print Language: Hebrew Stand Alone Forms: [employer] Award Info., Patient Portal Info Letter Discharge Order Discharge Orders: Discharge (Routine); Ordered 12/24/24 Ordered By: Rajni Garcia Quality Discharge Quality Measures VTE prophylaxis (Lovenox) Attestestation MD Attestation I have discussed and was present for the essential components of the discharge history, physical examination, diagnosis, and discharge treatment plan with the resident. I agree with the patient's discharge care as documented by the resident and amended herein by me. Nilesh Jaramillo DO. The patient understood all discharge instructions, all questions were answered satisfactorily. The patient was instructed to return to the Emergency Department is symptoms worsened or persisted. Patient was stable, afebrile and tolerating p.o. intake at time of discharge to SNF. Family notified, all questions answered satisfactorily. Although this document has been carefully reviewed, there may still be some phonetic and other typographical errors. These errors are purely grammatical due to imperfections in the software program and should not be construed in any way to compromise the substance of the patient's medical care during this visit.
--- NOTE | 2024-12-24 16:18 | PC.NURSE ---
Report given to Sandrine SALAMANCA at [facility]. DC packet included.
== END 2024-12-24 18:00 | disposition skilled nursing facility (03) | DRG 948 ==
LOC: SERX 18:37 → SERHOLD 18:54 → S3NX 20:49
PROVIDERS: Nurse Practitioner Family; Admitting Provider Student in an Organized Health Care Education/Training Program; Emergency Provider Emergency Medicine; PCP Family Medicine; Visit Provider Student in an Organized Health Care Education/Training Program
DX: R53.1 Weakness (principal); I48.20 Chronic atrial fibrillation, unspecified; Z68.1 Body mass index [BMI] 19.9 or less, adult; F03.94 Unspecified dementia, unspecified severity, with anxiety; R41.82 Altered mental status, unspecified; R29.6 Repeated falls; R62.7 Adult failure to thrive; G89.29 Other chronic pain; D64.89 Other specified anemias; F41.9 Anxiety disorder, unspecified; Z66 Do not resuscitate; F17.200 Nicotine dependence, unspecified, uncomplicated; L89.152 Pressure ulcer of sacral region, stage 2; Z99.81 Dependence on supplemental oxygen; Z99.3 Dependence on wheelchair; J44.89 Other specified chronic obstructive pulmonary disease; R32 Unspecified urinary incontinence; Z51.5 Encounter for palliative care; Z79.899 Other long term (current) drug therapy; Z88.5 Allergy status to narcotic agent; Z88.0 Allergy status to penicillin; Z88.8 Allergy status to other drugs, medicaments and biological substances
CPT/HCPCS: 36415; 70450; 71046; 80053; 80061; 81001; 82728; 83036; 83540; 83550; 83735; 83880; 84100; 84439; 84443; 84484; 85025; 85046; 85610; 85730; 92610; 93005; 93225; 94640; 94762; 96374; 99285; J1650; J2470; J3475; J3490; J7030; J7120; A9270; J1920